=== PATIENT | female | born 1950 | race Caucasian/White ===

== ENCOUNTER → 2017-07-25 13:30 | Outpatient (CLI) | payer MEDICARE, SELFPAY ==
--- NOTE | 2017-08-01 09:30 | PM.PFT.1 ---
Pulmonary Function Test Referral & Results Date Patient Seen: 07/25/17 Requesting provider: Klaudia Anderson Indication: Dyspnea upon exertion Results: The spirometry demonstrates an FVC of 2.89 L which is 101% of predicted. The FEV1 was measured at 2.39 L which is 110% of predicted. The FEV1/FVC ratio was 83 which is 107% of predicted. Lung volumes show an SVC of 3.07 L which is 112% of predicted. The diffusing capacity was measured at 20.77 which is 96% of predicted. The maximum voluntary ventilation was normal. Interpretation: This study demonstrates normal pulmonary function.
== END ==
PROVIDERS: PCP Nurse Practitioner Family; Visit Provider Nurse Practitioner Family
DX: R06.02 Shortness of breath (principal)
CPT/HCPCS: 94010; 94726; 94729

== ENCOUNTER → 2021-03-12 10:54 | Outpatient (CLI) | payer MEDICARE, SELFPAY ==
--- NOTE | 2021-03-12 | DI.MG.S_ITS ---
BILATERAL DIGITAL SCREENING MAMMOGRAM 3D/2D WITH CAD: 03/12/2021 CLINICAL: Routine screening. Family history of breast cancer. Comparison is made to exams dated: 11/12/2018 mammogram - outside location, 01/08/2015 mammogram - [facility], and 11/12/2009 mammogram - [facility]. There are scattered fibroglandular elements in both breasts. Current study was also evaluated with a Computer Aided Detection (CAD) system. No significant masses, calcifications, or other findings are seen in either breast. There has been no significant interval change. IMPRESSION: NEGATIVE There is no mammographic evidence of malignancy. A 1 year screening mammogram is recommended. This exam was interpreted at Station ID: [id number]. NOTE: For mammograms, a report in lay terms will be sent to the patient. Approximately 15% of breast malignancies will not be visualized mammographically. In the management of a palpable breast mass, a negative mammogram must not discourage biopsy of a clinically suspicious lesion. Electronically Signed By: Quincy Goldberg M.D., jr/kirstie:03/12/2021 11:41:46 letter sent: Normal Exam ACR BI-RADS Category 1: Negative 3341F
== END ==
PROVIDERS: PCP Family Medicine; Referring Provider Family Medicine; Visit Provider Family Medicine
DX: Z12.31 Encounter for screening mammogram for malignant neoplasm of breast (principal); Z80.3 Family history of malignant neoplasm of breast
CPT/HCPCS: 77063; 77067

== ENCOUNTER → 2021-08-31 11:19 | Outpatient (CLI) | payer MEDICARE, SELFPAY ==
--- NOTE | 2021-08-31 | DI.RAD.S_ITS ---
PROCEDURE: XR LUMBAR SPINE 2-3V INDICATIONS: Urge incontinence TECHNIQUE: 3 views of the lumbar spine were acquired. COMPARISON: None. FINDINGS: Bones: 5 [id number] vertebrae are present. No significant curvature of the lumbar spine. 2 mm retrolisthesis L5 on S1, 3 mm anterolisthesis L4 on L5, 3-4 mm anterolisthesis L3 on L4, likely degenerative. Moderate multilevel degenerative changes present with disc height loss and endplate spurring most pronounced at L5-S1 and facet degenerative changes most pronounced at the lower lumbar spine. No vertebral body compression fractures. No suspicious bony lesions. Soft tissues: Overlying bowel gas pattern is normal. Vascular calcifications are present. IMPRESSION: 1. No acute lumbar spine fracture visualized radiographically. 2. Moderate multilevel degenerative changes of the lumbar spine. Dictated by: Nav Sparks M.D. on 08/31/2021 at 14:46 Approved by: Nav Sparks M.D. on 08/31/2021 at 14:49
== END ==
PROVIDERS: PCP Family Medicine; Referring Provider Family Medicine; Visit Provider Family Medicine
DX: N39.41 Urge incontinence (principal); M47.816 Spondylosis without myelopathy or radiculopathy, lumbar region; M47.817 Spondylosis without myelopathy or radiculopathy, lumbosacral region
CPT/HCPCS: 72100

== ENCOUNTER → 2021-11-17 13:31 | Outpatient (CLI) | payer MEDICARE, SELFPAY ==
[2021-11-17 20:24] LABS: Add Manual Diff / Slide Review NO; Basophils Absolute Auto 0 /uL (0-100); Basophils Percent Auto 0.5 % (0-2); Eosinophils Absolute Auto 300 /uL (0-450); Hematocrit 35.9 % (36-46); Hemoglobin 12.3 g/dL (12.0-16.0); Lymphocytes Absolute Auto 1300 /uL (1100-4500); Lymphocytes Percent Auto 19.9 % (25-40); Mean Corpuscular HGB Conc 34.1 % (30-36); Mean Corpuscular Volume 90.9 fL (80-100); Monocytes Absolute Auto 600 /uL (0-900); Monocytes Percent Auto 8.8 % (3-14); Neutrophils Absolute Auto 4200 /uL (1500-7000); Neutrophils Percent Auto 65.8 % (50-75); Platelet Count 315 X10^3/uL (150-400); Red Blood Cell Count 3.95 X10^6/uL (4.0-5.2); Red Cell Distribution Width 12.4 % (11.6-14.8); White Blood Cell Count 6.3 X10^3/uL (4.5-11.0)
[2021-11-17 20:35] LABS: Alanine Aminotransferase 15 IU/L (<35); Albumin 4.3 g/dL (3.5-5.0); Albumin Globulin Ratio 1.1 (1.0-2.8); Alkaline Phosphatase 63 U/L (38-126); Aspartate Aminotransferase 26 IU/L (14-36); BUN Creatinine Ratio 22.4 (6-22); Bilirubin Total 0.3 mg/dL (0.2-1.3); Blood Urea Nitrogen 24 mg/dL (7-17); C-Reactive Protein Quant 0.6 mg/dL (<1.0); Calcium 9.4 mg/dL (8.4-10.2); Carbon Dioxide 23 mmol/L (22-32); Chloride 103 mmol/L (98-107); Estimated Glomerular Filt Rate 56 mL/min (>60); Globulin 3.9 g/dL (1.7-4.1); Glucose 95 mg/dL (80-110); HEMOLYSIS < 15 (0-50); Potassium 4.4 mmol/L (3.4-5.1); Sodium 139 mmol/L (137-145); Total Protein 8.2 g/dL (6.3-8.2)
[2021-11-17 20:57] LABS: Erythrocyte Sedimentation Rate 55 MM/HR (0-20)
[2021-11-18 16:09] LABS: Hepatitis B Surface Antigen NEGATIVE s/c (NEGATIVE)
[2021-11-18 16:27] LABS: Hep C Virus Ab w/Reflex Quant NEGATIVE s/c (NEGATIVE)
[2021-11-20 17:30] LABS: QuantiFERON Mitogen Value 9.95 IU/mL (.); QuantiFERON Nil Value 0.05 IU/mL (.); QuantiFERON TB Gold Plus Negative (Negative); QuantiFERON TB1 Ag Value 0.05 IU/mL (.); QuantiFERON TB2 Ag Value 0.05 IU/mL (.)
== END ==
PROVIDERS: Internal Medicine Rheumatology; PCP Family Medicine
DX: L40.50 Arthropathic psoriasis, unspecified (principal); Z79.899 Other long term (current) drug therapy
CPT/HCPCS: 80053; 85025; 85651; 86140; 86480; 86803; 87340

== ENCOUNTER → 2022-03-31 11:16 | Outpatient (CLI) | payer MEDICARE, SELFPAY ==
--- NOTE | 2022-03-31 | DI.MG.S_ITS ---
BILATERAL DIGITAL SCREENING MAMMOGRAM 3D/2D WITH CAD: 03/31/2022 CLINICAL: Routine screening. Family history of breast cancer. Comparison is made to exams dated: 03/12/2021 mammogram - [facility], 11/12/2018 mammogram - outside [facility], and 01/08/2015 mammogram - [facility]. There are scattered areas of fibroglandular density in both breasts (category b / 25%-50% glandular tissue). Current study was also evaluated with a Computer Aided Detection (CAD) system. Thereare benign calcifications in both breasts. There are grouped punctate calcifications in the left breast at 8 o'clock anterior depth. There also is possible architectural distortion in the left breast at 1 o'clock anterior depth. No other significant masses, calcifications, or other findings are seen in either breast. IMPRESSION: INCOMPLETE: NEEDS ADDITIONAL IMAGING EVALUATION The grouped punctate calcifications in the left breast at 8 o'clock anterior depth are indeterminate. Spot magnification views are recommended. The possible architectural distortion in the left breast at 1 o'clock anterior depth is indeterminate. Additional views with possible ultrasound are recommended. Based on the Tyrer Cuzick model (a risk assessment model) the patient's lifetime risk is 7.8% and her 10 year risk is 5.4%. According to the ACR, ACS, and NCCN guidelines, an annual breast MRI exam along with mammogram is recommended if the patient's lifetime risk is 20% or greater. This exam was interpreted at Station ID: [id number]. NOTE: For mammograms, a report in lay terms will be sent to the patient. Approximately 15% of breast malignancies will not be visualized mammographically. In the management of a palpable breast mass, a negative mammogram must not discourage biopsy of a clinically suspicious lesion. Electronically Signed By: Brittany sanchez/:03/31/2022 16:32:53 letter sent: Additional Imaging Needed ACR BI-RADS Category 0: Incomplete 3340F
--- NOTE | 2022-03-31 | DI.MRI.S_ITS ---
PROCEDURE: MR LUMBAR SPINE WO CON INDICATIONS: BACK PAIN TECHNIQUE: Noncontrast sagittal T1 spin echo and T2 fast echo, sagittal STIR, and T2 fast spin echo through the lumbar spine. In cases with scoliosis, additional coronal T2 fast spin echo may be performed. COMPARISON: [facility], CR, XR LUMBAR SPINE 2-3V, 08/31/2021, 11:35. FINDINGS: Image quality: Excellent. Alignment and Curvature: There is minimal anterolisthesis seen at the L3-L4 level. Minimal retrolisthesis is seen at L5-S1. Bone Marrow: Marrow is of normal overall signal. No acute vertebral body compression fractures. Spinal Cord: Conus medullaris terminates at the L1 level. Visualized cord demonstrates normal signal and size. Paraspinous Soft Tissues: No paravertebral masses. Moderate lower thoracic degenerative changes can be seen. T12-L1: At least moderate loss of disc height and disc signal can be seen. Reactive marrow endplate changes are seen, which demonstrate mixed T1 weighted and T2-weighted signal, and are attributed to a combination of edema and fatty metaplasia (Modic type I and Modic type II changes). Moderate generalized disc bulge is seen. There is a superimposed central disc protrusion. There is at least moderate left-sided and moderate right-sided neural foraminal narrowing. Moderate central canal narrowing is seen. L1-L2: The disc height is well-preserved. Loss of disc signal is seen at this level. Mild generalized disc bulge is seen. Mild facet joint hypertrophy is seen. There is mild left-sided and [id number]-fw-[id number] right-sided neural foraminal narrowing. Mild central canal narrowing is seen. L2-L3: The disc height is well-preserved. Loss of disc signal is seen at this level. At least moderate disc bulge is seen, which is eccentric to the right side. At least moderate facet hypertrophy is seen at this level. There is moderate to severe bilateral neural foraminal narrowing seen, with an associated a degree of compression seen upon the exiting nerve roots. At least moderate central canal narrowing is seen at this level, as on series 5, image 17. L3-L4: Moderate loss of disc height is seen. Loss of disc signal is seen. At least moderate disc bulge is seen, with a mild central disc extrusion. Prominent facet hypertrophy is seen. Associated hypertrophy of the ligamentum flavum can be seen. There is moderate to severe bilateral neural foraminal narrowing seen, with an associated a degree of compression seen upon the exiting nerve roots. There is severe central canal narrowing seen at this level, as on series 6, image 5. L4-L5: Kxkx-vj-mdkfudht loss of disc height and disc signal can be seen at this level. Moderate disc bulge is seen, with a central disc extrusion, with superior migration of the disc material, as seen on series 2, image 9 and on series 6, image 8. Prominent facet hypertrophy is seen at this level. There is severe right-sided and mild to severe left-sided neural foraminal narrowing. There is a degree of compression seen upon the exiting nerve roots. Moderate to severe central canal narrowing is seen at this level. L5-S1: Moderate to severe loss of disc height and disc signal can be seen. Reactive marrow endplate changes are seen, which are hyperintense on T1-weighted and T2-weighted imaging and most consistent with fatty metaplasia (Modic type II changes). At least moderate disc bulge is seen, with a central disc protrusion. Moderate facet hypertrophy is seen, left worse than right. There is at least moderate bilateral neural foraminal narrowing seen. There is a mild degree of compression seen upon the exiting L5 nerve roots. No significant central canal narrowing is seen. IMPRESSION: Multiple levels of lumbar spine degenerative change are seen, which are worst at L3-L4 and L4-L5. Dictated by: Austen Kirby M.D. on 03/31/2022 at 15:38 Approved by: Austen Kirby M.D. on 03/31/2022 at 15:42
== END ==
PROVIDERS: PCP Family Medicine; Referring Provider Family Medicine; Visit Provider Family Medicine
DX: Z12.31 Encounter for screening mammogram for malignant neoplasm of breast (principal); Z80.3 Family history of malignant neoplasm of breast; M47.816 Spondylosis without myelopathy or radiculopathy, lumbar region; M54.41 Lumbago with sciatica, right side; M54.42 Lumbago with sciatica, left side
CPT/HCPCS: 72148; 77063; 77067

== ENCOUNTER → 2022-04-25 13:30 | Outpatient (CLI) | payer MEDICARE, SELFPAY ==
--- NOTE | 2022-04-25 | DI.MG.S_ITS ---
UNILATERAL LEFT DIGITAL DIAGNOSTIC MAMMOGRAM 3D/2D WITH ADDITIONAL VIEWS: 04/25/2022 CLINICAL: Additional evaluation requested from prior study. Comparison is made to exams dated: 03/31/2022 mammogram, 03/12/2021 mammogram - [facility], and 11/12/2018 mammogram - outside location. There are scattered areas of fibroglandular density in the left breast (category b / 25%-50% glandular tissue). There are 0.5 cm grouped punctate calcifications in the left breast at 11 o'clock anterior depth. These are seen in additional views. The possible architectural distortion in the left breast at 1 o'clock anterior depth is no longer seen and most likely is fibroglandular tissue. This is not confirmed in additional views. No other significant masses or calcifications are seen in the breast. IMPRESSION: INCOMPLETE: NEEDS ADDITIONAL IMAGING EVALUATION The 0.5 cm grouped punctate calcifications in the left breast at 11 o'clock anterior depth resemble a degenerating fibroadenoma and are indeterminate. An ultrasound is recommended for further evaluation and is scheduled to immediately follow this examination. An ultrasound is also recommended to confirm the no longer seen possible architectural distortion in the left breast at 1 o'clock anterior depth. Based on the Tyrer Cuzick model (a risk assessment model) the patient's lifetime risk is 7.8% and her 10 year risk is 5.4%. According to the ACR, ACS, and NCCN guidelines, an annual breast MRI exam along with mammogram is recommended if the patient's lifetime risk is 20% or greater. This exam was interpreted at Station ID: [id number]. NOTE: For mammograms, a report in lay terms will be sent to the patient. Approximately 15% of breast malignancies will not be visualized mammographically. In the management of a palpable breast mass, a negative mammogram must not discourage biopsy of a clinically suspicious lesion. Electronically Signed By: Krish Love M.D. aty/:04/25/2022 14:45:26 ACR BI-RADS Category 0: Incomplete 3340F
--- NOTE | 2022-04-25 | DI.US.S_ITS ---
ULTRASOUND OF LEFT BREAST: 04/25/2022 CLINICAL: ADD VIEWS OF LEFT BREAST. Comparison is made to exams dated: 04/25/2022 mammogram, 03/31/2022 mammogram, and 03/12/2021 mammogram - [facility]. Color flow and real-time ultrasound of the left breast were performed. Boyce scale images of the real-time examination were reviewed. There is a benign calcification in the left breast. There is a 0.3 cm x 0.3 cm x 0.3 cm oval cyst in the left breast at 11 o'clock anterior depth 3 cm from the nipple. This oval cyst is hypoechoic with internal echoes. This correlates with mammography findings. There are related rim calcifications. Color flow imaging demonstrates that there is no vascularity present. There also is a benign 0.4 cm x 0.3 cm x 0.4 cm oval cyst in the left breast at 10 o'clock posterior depth 6 cm from the nipple. This oval cyst is anechoic with posterior acoustic enhancement. This correlates as an incidental finding. Color flow imaging demonstrates that there is no vascularity present. IMPRESSION: PROBABLY BENIGN The 0.3 cm x 0.3 cm x 0.3 cm oval cyst in the left breast at 11 o'clock anterior depth is consistent with a complicated cyst and is probably benign. A follow-up left mammogram and an ultrasound in 6 months is recommended to demonstrate stability. The 0.4 cm x 0.3 cm x 0.4 cm oval cyst in the left breast at 10 o'clock posterior depth resembles a simple cyst and is benign. There is no abnormality seen in the left breast to correspond with the resolved possible architectural distortion seen on mammography at 1 o'clock which likely represent normal fibroglandular tissue. Findings and recommendations were conveyed to the patient during today's evaluation. This exam was interpreted at Station ID: [id number]. Electronically Signed By: Krish Love M.D. aty/:04/25/2022 15:04:04 letter sent: Followup Recommended Ultrasound BI-RADS: 3 Probably benign
== END ==
PROVIDERS: PCP Family Medicine; Referring Provider Family Medicine; Visit Provider Family Medicine
DX: R92.8 Other abnormal and inconclusive findings on diagnostic imaging of breast (principal); R92.1 Mammographic calcification found on diagnostic imaging of breast; N60.02 Solitary cyst of left breast
CPT/HCPCS: 76642; 77065; G0279

== ENCOUNTER 2022-08-12 13:52 | Inpatient (IN) | payer MEDICARE, SELFPAY ==
[2022-08-12] VITALS (19 sets, daily range): BP systolic 111–141; BP diastolic 59–84; PULSE 86–110; RESP 20–39; TEMP 36.4–36.9; O2SAT 75–98; BMI 26.6
--- NOTE | 2022-08-12 14:16 | DI.RAD.S_ITS ---
PROCEDURE: XR CHEST 1V INDICATIONS: Shortness of breath TECHNIQUE: One view of the chest was acquired. COMPARISON: [facility] ([facility]), CR, XR CHEST 2V, 08/09/2022, 14:32. FINDINGS: Surgical changes and devices: None. Lungs and pleura: Multiple patchy bilateral areas of pulmonary opacity relatively unchanged compared to prior exam. Mediastinum: Mediastinal contours appear normal. Heart size is normal. Bones and chest wall: No suspicious bony lesions. Overlying soft tissues appear unremarkable. IMPRESSION: Persistent bilateral pulmonary opacities suspicious for pneumonia. No appreciable change. Dictated by: Ashwini Saldana M.D. on 08/12/2022 at 14:37 Approved by: Ashwini Saldana M.D. on 08/12/2022 at 14:37
[2022-08-12 14:29] LABS: Add Manual Diff / Slide Review NO; Basophils Absolute Auto 100 /uL (0-100); Basophils Percent Auto 0.9 % (0-2); Eosinophils Absolute Auto 200 /uL (0-450); Eosinophils Percent Auto 2.2 % (2-4); Hematocrit 40.4 % (36-46); Hemoglobin 13.6 g/dL (12.0-16.0); Lymphocytes Absolute Auto 1100 /uL (1100-4500); Mean Corpuscular HGB Conc 33.8 % (30-36); Mean Corpuscular Hemoglobin 31.5 PG (26-34); Mean Corpuscular Volume 93.1 fL (80-100); Monocytes Absolute Auto 500 /uL (0-900); Monocytes Percent Auto 5.2 % (3-14); Neutrophils Absolute Auto 7400 /uL (1500-7000); Neutrophils Percent Auto 79.7 % (50-75); Platelet Count 441 X10^3/uL (150-400); Red Blood Cell Count 4.34 X10^6/uL (4.0-5.2); Red Cell Distribution Width 12.9 % (11.6-14.8); White Blood Cell Count 9.2 X10^3/uL (4.5-11.0)
[2022-08-12 14:35] LABS: INR 1.1 (0.9-1.3); Prothrombin Time 13.1 SECONDS (10.1-12.7)
[2022-08-12 14:42] LABS: Alanine Aminotransferase 20 IU/L (<35); Albumin 4.3 g/dL (3.5-5.0); Alkaline Phosphatase 82 U/L (38-126); Aspartate Aminotransferase 48 IU/L (14-36); BUN Creatinine Ratio 21.3 (6-22); Bilirubin Total 0.6 mg/dL (0.2-1.3); Blood Urea Nitrogen 26 mg/dL (7-17); Calcium 9.8 mg/dL (8.4-10.2); Carbon Dioxide 18 mmol/L (22-32); Chloride 108 mmol/L (98-107); Estimated Glomerular Filt Rate 47 mL/min (>60); Globulin 4.5 g/dL (1.7-4.1); Glucose 141 mg/dL (80-110); HEMOLYSIS 22 (0-50); Potassium 4.4 mmol/L (3.4-5.1); Sodium 142 mmol/L (137-145); Total Protein 8.8 g/dL (6.3-8.2)
[2022-08-12 14:54] LABS: NT-proBNP (BNP-Adult 18+) 3650 pg/mL (<125); Troponin I 0.089 ng/mL (0.01-0.034)
[2022-08-12 14:59] LABS: Procalcitonin 0.07 ng/mL (<0.5)
--- NOTE | 2022-08-12 15:02 | DI.CT.S_ITS ---
PROCEDURE: CT ANGIO CHEST PE PROTOCOL INDICATIONS: sob, +pna, chf changes. TECHNIQUE: After the administration of intravenous contrast, 2 mm thick sections acquired from the pulmonary apices to the posterior costophrenic angles. 3-dimensional maximum intensity projection (MIP) coronal and sagittal reformats were then acquired through the thorax. For radiation dose reduction, the following was used: automated exposure control, adjustment of mA and/or kV according to patient size. COMPARISON: [facility] [place], CR, XR CHEST 2V, 08/09/2022, 14:32. [facility], CR, XR CHEST 1V, 08/12/2022, 14:18. FINDINGS: Image quality: Excellent. Pulmonary arteries: Pulmonary arteries are normal in size, and demonstrate no intraluminal filling defects to suggest central pulmonary embolism. Lungs and pleura: Lungs are clear. No pleural effusions or pneumothorax. Central and peripheral airways are patent. Mediastinum: Heart size is normal, without pericardial effusion. Mild mediastinal or hilar adenopathy, likely reactive. Thoracic aorta is normal in caliber and enhancement. Esophagus is normal in caliber, without hiatal hernia. Bones and chest wall: No suspicious bony lesions. Ribs and thoracic spine appear intact throughout. Thyroid gland is normal. No axillary or supraclavicular adenopathy. Abdomen: Visualized upper abdominal solid organs appear normal in the early arterial phase of enhancement. IMPRESSION: 1. No evidence for pulmonary embolism. 2. Bilateral nodular airspace infiltrates consistent with pneumonia. Recommend clinical correlation for possible atypical pneumonia. Recommend follow-up to resolution. 3. Small pleural effusions bilaterally. 4. Suspect reactive mediastinal and hilar lymphadenopathy. Dictated by: Mark Ordonez M.D. on 08/12/2022 at 16:00 Approved by: Mark Ordonez M.D. on 08/12/2022 at 16:03
[2022-08-12] MEDS: cefTRIAXone 2,000 MG in SODIUM CHLORIDE 0.9% 100 ML 200 MG IV (15:07)
[2022-08-12] MEDS: FUROSEMIDE 60 MG in SODIUM CHLORIDE 0.9% 50 ML 112 MG IV (15:07)
--- NOTE | 2022-08-12 15:08 | ED.SOB ---
HPI - SOB/Dyspnea General Chief Complaint: Shortness of Breath/Dyspnea Stated Complaint: SOB, says Pneumonia, 1 wk Time Seen by Provider: 08/12/22 14:13 Source: patient and RN notes reviewed Mode of arrival: Family Vehicle Limitations: no limitations History of Present Illness HPI Narrative: This is a 72-year-old female with history of hypertension dyslipidemia, prediabetes, psoriatic arthritis on Cosentyx, hypothyroidism who presents with complaint of pneumonia and worsening shortness of breath. Patient states she had symptoms starting about a week and a half ago with shortness of breath and a cough that was persistent but nonproductive. No fevers or chills. Some mild nasal congestion. She denies any chest pain at any point. She is had an no swelling of her extremities, she denies nausea or vomiting, no diarrhea constipation. No dysuria urgency or frequency. Patient states no hemoptysis. She states she was seen by her physician started on a Z-Abram after chest x-ray showed pneumonia. Patient states increasing shortness of breath and now dyspnea with exertion particularly even 4 or 5 steps. Patient lives on [facility]. She was seen by Dr. Perlita Pacheco. Patient states prior hysterectomy, tubal ligation and . No history of known cardiac issues. Allergic to sulfa and lidocaine. No tobacco, 1 alcoholic drink weekly, no illicit. She is accompanied by her . Related Data Previous Rx's Medication Instructions Recorded levothyroxine 50 mcg tablet 0.05 mg PO QAM #90 tabs 02/05/16 metformin 1,000 mg tablet 1,000 mg PO BIDCC #180 tabs 02/05/16 quinapril 40 mg tablet 40 mg PO QDAY #90 tabs 02/05/16 simvastatin 40 mg tablet 40 mg PO HS #90 tabs 02/05/16 albuterol sulfate 90 mcg/actuation 0 IH SEE INSTRUCTIONS ##1 09/13/16 aerosol inhaler (Proventil HFA) albuterol sulfate 90 mcg/actuation 0 IH SEE INSTRUCTIONS ##1 09/21/16 aerosol inhaler (Proventil HFA) Allergies Allergy/AdvReac Type Severity Reaction Status Date / Time Sulfa (Sulfonamide Allergy Intermediate HIVES Unverified 05/31/17 12:19 Antibiotics) lidocaine [LIDOCAINE] Allergy Mild Unverified 05/31/17 12:19 Review of Systems Review of Systems ROS Unobtainable: All systems reviewed & are unremarkable except as noted in HPI and below Exam Narrative Exam Narrative: GENERAL: Alert and oriented x three, female in moderate distress. HEENT: Head normocephalic, atraumatic, EOMI, pupils reactive, face symmetric, moist mucous membranes NECK: Supple, full range of motion CARDIOVASCULAR: Regular rate and rhythm without murmurs, rubs or gallops. No JVD appreciated. No swelling bilateral lower extremities RESPIRATORY: Breath sounds equal bilaterally, no wheezes or rhonchi. Positive for crackles bilateral bases. Positive for tachypnea, no accessory muscle use. Patient was 79% initially on room air comes up to 90% with 4 L. ABDOMEN: Soft, nontender. Normoactive bowel sounds all 4 quadrants. No guarding or rebound, rigidity, no mass : No CVA tenderness EXTREMITIES: Normal range of motion, no clubbing or edema appreciated. Neurovascularly intact NEUROLOGICAL: Cranial nerves II through XII grossly intact. Moving all extremities SKIN: Warm, dry, no petechiae, no rashes or lesions. Initial Vital Signs Initial Vital Signs: Vital Signs Pulse Rate 110 H 08/12/22 14:03 Respiratory Rate 38 H 08/12/22 14:03 Course Orders Ordered: ED Orders 08/12/22 14:16 XR chest 1V Stat EKG-12 Lead Stat Measure peak expiratory flow ONCE RT Consult Eval and Treat NOW 08/12/22 14:20 Complete Blood Count AUTO DIFF Stat Comprehensive Metabolic Panel Stat Lactate (Lactic Acid) Stat NT-proBNP (BNP-Adult 18+) Stat Procalcitonin Stat Prothrombin Time INR Stat Troponin I Stat 08/12/22 14:45 Blood Culture Stat 08/12/22 15:02 CT angio chest PE protocol Stat 08/12/22 15:54 Urine Microscopic Stat 08/12/22 16:27 Magnesium Urgent Troponin & CK Cardiac Panel Stat 08/12/22 18:03 EC echo doppler complete Urgent 08/13/22 05:00 BMP [Basic Metabolic Panel] DAILY CBC Auto Diff [Complete Blood Count AUTO DIFF] DAILY Troponin I Routine 08/14/22 05:00 BMP [Basic Metabolic Panel] DAILY CBC Auto Diff [Complete Blood Count AUTO DIFF] DAILY 08/15/22 05:00 BMP [Basic Metabolic Panel] DAILY CBC Auto Diff [Complete Blood Count AUTO DIFF] DAILY Acetaminophen (Acetaminophen 325 Mg Tablet) 650 mg PO Q6H PRN PRN Reason: Fever/Mild Pain (1-3) Azithromycin (Azithromycin 250 Mg Tablet) 500 mg PO DAILY [facility] Stop: 08/15/22 18:04 Dextrose (Dextrose 50 % In Water 25 Gm/50 Ml Syringe) 25 gm IV PRN PRN PRN Reason: Hypoglycemia Heparin Sodium (Porcine) (Heparin 5,000 Unit/Ml Vial) 5,000 unit SUBCUT BID PILY Ceftriaxone Sodium 1,000 mg/ (Sodium Chloride) 100 mls @ 200 mls/hr IV Q24H PILY Stop: 08/15/22 18:16 Insulin Human Lispro (Insulin Lispro 100 Unit/Ml 3ml Vial) 0 unit SUBCUT ACHS PILY; Protocol Melatonin (Melatonin 3 Mg Tablet) 6 mg PO BEDTIME PRN PRN Reason: Insomnia Naloxone HCl (Naloxone 0.4 Mg/Ml Vial) 0.2 mg IV Q2MIN PRN PRN Reason: Opiate Reversal Polyethylene Glycol (Polyethylene Glycol 3350 17 Gm Powd.Pack) 17 gm PO DAILY PRN PRN Reason: Constipation Sennosides (Sennosides 8.6 Mg Tablet) 8.6 mg PO BID PRN PRN Reason: Constipation Discontinued Medications Furosemide 60 mg/ Sodium (Chloride) 56 mls @ 112 mls/hr IV NOW ONE Stop: 08/12/22 15:01 Last Infusion: 08/12/22 15:40 Dose: 0 mls/hr Documented By: Admin: 08/12/22 15:07 Dose: 112 mls/hr Documented By: VAN Ceftriaxone Sodium 2,000 mg/ (Sodium Chloride) 100 mls @ 200 mls/hr IV NOW ONE Stop: 08/12/22 15:01 Last Infusion: 08/12/22 15:40 Dose: 0 mls/hr Documented By: Admin: 08/12/22 15:07 Dose: 200 mls/hr Documented By: VAN Vital Signs Vital signs: Vital Signs - 8 hr 08/12/22 14:10 08/12/22 14:03 08/12/22 14:04 Temperature 97.6 F Pulse Rate 92 H 110 H 107 H Respiratory Rate 28 H 38 H 39 H Blood Pressure 132/62 Pulse Oximetry 79 L 75 L Oxygen Delivery Method Room Air Oxygen Flow Rate 08/12/22 14:04 08/12/22 14:30 08/12/22 14:30 Temperature Pulse Rate 94 H Respiratory Rate 26 H Blood Pressure 132/62 130/63 Pulse Oximetry 98 94 Oxygen Delivery Method Nasal Cannula Oxygen Flow Rate 4 08/12/22 15:00 08/12/22 15:22 08/12/22 15:22 Temperature Pulse Rate 86 88 Respiratory Rate 26 H 25 H Blood Pressure 141/63 H Pulse Oximetry 93 97 Oxygen Delivery Method Nasal Cannula Oxygen Flow Rate 4 08/12/22 15:30 08/12/22 15:30 08/12/22 16:00 Temperature Pulse Rate 90 Respiratory Rate 20 Blood Pressure 130/61 123/64 Pulse Oximetry 96 Oxygen Delivery Method Oxygen Flow Rate 08/12/22 16:00 08/12/22 16:30 08/12/22 16:31 Temperature Pulse Rate 87 93 H 93 H Respiratory Rate 25 H 26 H 26 H Blood Pressure Pulse Oximetry 97 95 94 Oxygen Delivery Method Nasal Cannula Oxygen Flow Rate 4 08/12/22 17:00 Temperature Pulse Rate Respiratory Rate Blood Pressure 139/65 Pulse Oximetry Oxygen Delivery Method Oxygen Flow Rate MDM - SOB/Dyspnea Lab Data 08/12/22 14:20 08/12/22 14:20 Labs: Lab Results 08/12/22 08/12/22 08/12/22 Range/Units 14:20 14:20 14:20 WBC 9.2 (4.5-11.0) X10^3/uL RBC 4.34 (4.0-5.2) X10^6/uL Hgb 13.6 (12.0-16.0) g/dL Hct 40.4 (36-46) % MCV 93.1 (80-100) fL MCH 31.5 (26-34) PG MCHC 33.8 (30-36) % RDW 12.9 (11.6-14.8) % Plt Count 441 H (150-400) X10^3/uL Neut % (Auto) 79.7 H (50-75) % Lymph % (Auto) 12.0 L (25-40) % [place] % (Auto) 5.2 (3-14) % Eos % (Auto) 2.2 (2-4) % Baso % (Auto) 0.9 (0-2) % Neut # (Auto) 7400 H (1875-3758) /uL Lymph # (Auto) 1100 (4819-6482) /uL [place] # (Auto) 500 (0-900) /uL Eos # (Auto) 200 (0-450) /uL Baso # (Auto) 100 (0-100) /uL PT 13.1 H (10.1-12.7) SECONDS INR 1.1 (0.9-1.3) Sodium 142 (137-145) mmol/L Potassium 4.4 (3.4-5.1) mmol/L Chloride 108 H (98-107) mmol/L Carbon Dioxide 18 L (22-32) mmol/L BUN 26 H (7-17) mg/dL Creatinine 1.22 H (0.52-1.04) mg/dL Estimated GFR 47 L (>60) mL/min BUN/Creatinine Ratio 21.3 (6-22) Glucose 141 H (80-110) mg/dL Lactate (0.7-2.1) mmol/L Calcium 9.8 (8.4-10.2) mg/dL Magnesium (1.6-2.3) mg/dL Total Bilirubin 0.6 (0.2-1.3) mg/dL AST 48 H (14-36) IU/L ALT 20 (<35) IU/L Alkaline Phosphatase 82 (38-126) U/L Total Creatine Kinase (30-135) U/L CK-MB (CK-2) CK-MB (CK-2) Rel Index Troponin I 0.089 H (0.01-0.034) ng/mL NT-Pro-B Natriuret Pep 3650 H (<125) pg/mL Total Protein 8.8 H (6.3-8.2) g/dL Albumin 4.3 (3.5-5.0) g/dL Globulin 4.5 H (1.7-4.1) g/dL Albumin/Globulin Ratio 1.0 (1.0-2.8) Procalcitonin (<0.5) ng/mL Urine RBC (0-5/HPF) Urine WBC (0-5/HPF) Ur Squamous Epith Cells (0-5/HPF) Ur Transition Epith Cell (0-5/HPF) Urine Bacteria (None) Ur Culture Indicated? 08/12/22 08/12/22 08/12/22 Range/Units 14:20 14:20 15:54 WBC (4.5-11.0) X10^3/uL RBC (4.0-5.2) X10^6/uL Hgb (12.0-16.0) g/dL Hct (36-46) % MCV (80-100) fL MCH (26-34) PG MCHC (30-36) % RDW (11.6-14.8) % Plt Count (150-400) X10^3/uL Neut % (Auto) (50-75) % Lymph % (Auto) (25-40) % [place] % (Auto) (3-14) % Eos % (Auto) (2-4) % Baso % (Auto) (0-2) % Neut # (Auto) (0887-6575) /uL Lymph # (Auto) (4714-1771) /uL [place] # (Auto) (0-900) /uL Eos # (Auto) (0-450) /uL Baso # (Auto) (0-100) /uL PT (10.1-12.7) SECONDS INR (0.9-1.3) Sodium (137-145) mmol/L Potassium (3.4-5.1) mmol/L Chloride (98-107) mmol/L Carbon Dioxide (22-32) mmol/L BUN (7-17) mg/dL Creatinine (0.52-1.04) mg/dL Estimated GFR (>60) mL/min BUN/Creatinine Ratio (6-22) Glucose (80-110) mg/dL Lactate 4.0 H (0.7-2.1) mmol/L Calcium (8.4-10.2) mg/dL Magnesium (1.6-2.3) mg/dL Total Bilirubin (0.2-1.3) mg/dL AST (14-36) IU/L ALT (<35) IU/L Alkaline Phosphatase (38-126) U/L Total Creatine Kinase (30-135) U/L CK-MB (CK-2) CK-MB (CK-2) Rel Index Troponin I (0.01-0.034) ng/mL NT-Pro-B Natriuret Pep (<125) pg/mL Total Protein (6.3-8.2) g/dL Albumin (3.5-5.0) g/dL Globulin (1.7-4.1) g/dL Albumin/Globulin Ratio (1.0-2.8) Procalcitonin 0.07 (<0.5) ng/mL Urine RBC 0-1/hpf (0-5/HPF) Urine WBC 1-5/hpf (0-5/HPF) Ur Squamous Epith Cells 1-5 /hpf (0-5/HPF) Ur Transition Epith Cell 0-1/hpf (0-5/HPF) Urine Bacteria None seen (None) Ur Culture Indicated? Cult not indicated 08/12/22 08/12/22 08/12/22 Range/Units 16:27 16:27 16:27 WBC (4.5-11.0) X10^3/uL RBC (4.0-5.2) X10^6/uL Hgb (12.0-16.0) g/dL Hct (36-46) % MCV (80-100) fL MCH (26-34) PG MCHC (30-36) % RDW (11.6-14.8) % Plt Count (150-400) X10^3/uL Neut % (Auto) (50-75) % Lymph % (Auto) (25-40) % [place] % (Auto) (3-14) % Eos % (Auto) (2-4) % Baso % (Auto) (0-2) % Neut # (Auto) (2747-3797) /uL Lymph # (Auto) (5723-8947) /uL [place] # (Auto) (0-900) /uL Eos # (Auto) (0-450) /uL Baso # (Auto) (0-100) /uL PT (10.1-12.7) SECONDS INR (0.9-1.3) Sodium (137-145) mmol/L Potassium (3.4-5.1) mmol/L Chloride (98-107) mmol/L Carbon Dioxide (22-32) mmol/L BUN (7-17) mg/dL Creatinine (0.52-1.04) mg/dL Estimated GFR (>60) mL/min BUN/Creatinine Ratio (6-22) Glucose (80-110) mg/dL Lactate 3.0 H (0.7-2.1) mmol/L Calcium (8.4-10.2) mg/dL Magnesium 1.2 L (1.6-2.3) mg/dL Total Bilirubin (0.2-1.3) mg/dL AST (14-36) IU/L ALT (<35) IU/L Alkaline Phosphatase (38-126) U/L Total Creatine Kinase 45 (30-135) U/L CK-MB (CK-2) TNP CK-MB (CK-2) Rel Index TNP Troponin I 0.092 H (0.01-0.034) ng/mL NT-Pro-B Natriuret Pep (<125) pg/mL Total Protein (6.3-8.2) g/dL Albumin (3.5-5.0) g/dL Globulin (1.7-4.1) g/dL Albumin/Globulin Ratio (1.0-2.8) Procalcitonin (<0.5) ng/mL Urine RBC (0-5/HPF) Urine WBC (0-5/HPF) Ur Squamous Epith Cells (0-5/HPF) Ur Transition Epith Cell (0-5/HPF) Urine Bacteria (None) Ur Culture Indicated? Urine Dip Bedside Urine Glucose Negative Bedside Urine Bilirubin - Negative Bedside Urine Ketone - Negative Urine Specific [place] 1.010 Bedside Urine Occult Blood - Negative Bedside Urine pH 6.0 Bedside Urine Protein - Negative Bedside Urine Urobilinogen - Negative Bedside Urine Nitrite - Negative Bedside Urine Leukocytes +/- 15 Esterase Imaging Data Chest x-ray: Radiologist's Impression: Close Chest X-Ray (Signed) Ashwini Saldana - 08/12/22 Chest X-Ray (Signed) Mark Ordonez - 08/09/22 Mammogram, Additional Views (Signed) Krish Love - 04/25/22 Breast Ultrasound (Signed) Krish Love - 04/25/22 Mammogram Screening (Signed) Brittany Snider - 03/31/22 Lumbar Spine MRI (Signed) Austen Kirby - 03/31/22 Lumbar Spine X-Ray (Signed) Nav Sparks - 08/31/21 Mammogram Screening (Signed) Quincy Goldberg - 03/12/21 Pulmonary Function Test 07/25/17 Launch?[address] [address] XRay Report Signed Patient: Ya Slater MR#: [id number] : 1950 Acct:[id number] Age/Sex: 72 / F Date of Service: 08/12/22 Loc: ED Accession Number: [id number] ?? Procedure: XR chest 1V Ordering Provider: Annika Villatoro D.O. PROCEDURE:? XR CHEST 1V ? INDICATIONS:? Shortness of breath ? TECHNIQUE:? One view of the chest was acquired.? ? COMPARISON:? [facility] ([place]), CR, XR CHEST 2V, 08/09/2022, 14:32. ? FINDINGS:? ? Surgical changes and devices:? None.? ? Lungs and pleura:? Multiple patchy bilateral areas of pulmonary opacity relatively unchanged compared to prior exam. ? Mediastinum:? Mediastinal contours appear normal.? Heart size is normal.? ? Bones and chest wall:? No suspicious bony lesions.? Overlying soft tissues appear unremarkable.? ? IMPRESSION:? Persistent bilateral pulmonary opacities suspicious for pneumonia.? No appreciable change. ? ? Dictated by: Ashwini Saldana M.D. on 08/12/2022 at 14:37 ? ? Approved by: Ashwini Saldana M.D. on 08/12/2022 at 14:37?? ECG Data Attestation: I personally reviewed and interpreted this ECG as follows: Interpretation: Sinus rhythm rate of 95 MS 172 QRS is 72 and QTC of 452. No acute ST elevation or depression appreciated. No priors for comparison. MDM Narrative Medical decision making narrative: This is a 72-year-old female who presents with complaint of worsening pneumonia. Patient notes about a week and a half of symptoms had a chest x-ray on 08/09/2022 which showed patchy bilateral infiltrates suspicious for atypical pneumonia. Patient has crackles bilateral bases, she is hypoxic, tachypneic does respond well to O2. Does not appear to be in respiratory distress requiring BiPAP or additional intervention but is requiring oxygen. Patient has not had any clear CHF changes but has had shortness of breath with cough and exertional dyspnea. She does not have leukocytosis platelets are elevated. Bandemia. Patient's creatinine is 1.2 has 1.07 in October of 2021 with a CO2 of 18 sodium is 142 potassium is 4.4 lactate was 4 AST is 48 BNP is 36 50 with a troponin of 0.089 in the indeterminate range and negative procalcitonin. Suspect there maybe a component of CHF so fluids were held and patient was not given 30 cc/kilos sepsis bolus, dose of Lasix was given patient was covered with Rocephin she is already had azithromycin today. CT chest for further evaluation for possible pulmonary, versus pneumonia versus CHF as causes of her symptoms. CT shows no pulmonary emboli, does show pneumonia and some pleural effusion. Patient's lactate trending down to 3 without fluids we will continue to hold with continued diuresis and fluids as needed. Patient does desat when moved to the commode and off O2 for 1-2 minutes. Slowly improved. Patient case discussed with the [facility] for admission: Patient accepted for admission. Reviewed CT chest, today's findings. Patient accepted for admission, patient troponin was repeated, slightly increased but platelet continue to monitor. Critical Care Time Critical Care Time Attestation: The high probability of a clinically significant, sudden or life threatening deterioration of the [cardiac, pulm] system(s) required my full and direct attention, intervention and personal management. The aggregate critical care time was [] minutes. This time is in addition to time spent performing reported procedures but includes the following: [x] Data Review and interpretation [x] Patient assessment and monitoring of vital signs [x] Documentation [x] Medication orders and management Discharge Plan Departure Patient Disposition: Admitted As Inpatient Clinical Impression: Pneumonia, Acute exacerbation of CHF (congestive heart failure), Acute respiratory failure with hypoxia Prescriptions: No Action quinapril 40 MG tablet 40 mg PO QDAY Qty: 90 3RF simvastatin 40 MG tablet 40 mg PO HS Qty: 90 3RF levothyroxine 50 MCG tablet 0.05 mg PO QAM Qty: 90 3RF metformin 1,000 MG tablet 1,000 mg PO BIDCC Qty: 180 3RF albuterol sulfate [Proventil HFA] 90 MCG/PUFF HFA aerosol inhaler 0 IH SEE INSTRUCTIONS Qty: 1 0RF albuterol sulfate [Proventil HFA] 90 MCG/PUFF HFA aerosol inhaler 0 IH SEE INSTRUCTIONS Qty: 1 1RF Referrals: Perlita Pacheco MD [Primary Care Provider] -
[2022-08-12 16:24] LABS: Reflexed Lactate in 2 Hours Y
[2022-08-12 16:41] LABS: Bacteria Urine None Seen; Culture Indicated Urine Cult Not Indicated; RBC Urine 0-1/HPF (0-5/HPF); Squamous Epithelial Cell Urine 1-5 /HPF (0-5/HPF); Transitional Epi Cells Urine 0-1/HPF (0-5/HPF); WBC Urine 1-5/HPF (0-5/HPF)
[2022-08-12 16:44] LABS: Creatine Kinase 45 U/L (30-135)
[2022-08-12 16:57] LABS: Troponin I 0.092 ng/mL (0.01-0.034)
--- NOTE | 2022-08-12 18:03 | DI.ECHO.S_ITS ---
[facility]---------+ [facility] +---------+ : : [address] : [place] : : : : [id number] : : : : Phone: [phone] Echocardiogram Report + + :Name: SAMIRA CAR Study Date: 08/14/2022 Height: 66 in : :[facility] ReadingLocation: Weight: 165 lb : : Gender: Female BSA: 1.8 m2 : :: 1950 Age: 72 yrs BP: 101/56 mmHg: :Reason For Study: Elevated BNP : :Ordering Physician: Chaim, : :Dustin Performed By: Gwendolyn Smith : :Referring: DUSTIN MACHUCA A : + + Interpretation Summary Normal sinus rhythm with wide QRS complexes. Normal LV size and mild concentric LVH. Normal wall motion and LV systolic function. Ejection fraction is 60-65%. Stage I diastolic dysfunction. Aortic valve leaflets are mildly thickened and calcified with mildly reduced leaflet excursion but open well. Estimated PA systolic pressure is 29 mm Hg assuming RA pressure of 3 mm Hg. No prior study available for comparison. Procedure: A two-dimensional transthoracic echocardiogram with color flow and Doppler was performed. The study quality was technically adequate. There is no prior echocardiogram noted for this patient. A contrast injection of Definity was performed to improve assessment of LV function. The patient was in normal sinus rhythm during the exam. Left Ventricle: The left ventricular cavity is small. The ejection fraction is estimated to be 60-65%. Diastolic parameters suggest a relaxation abnormality of the left ventricle, consistent with probable normal filling pressures. Right Ventricle: The right ventricular cavity is small. Right ventricular systolic function is mild to moderately reduced. Atria: The left atrial size is normal. Right atrium is small. There is no Doppler evidence for an interatrial shunt. Mitral Valve: The mitral valve is normal. There is no mitral valve stenosis. There is no mitral regurgitation noted. Aortic Valve: The aortic valve is trileaflet. The aortic valve is mildly calcified. There is no aortic valve stenosis. No aortic regurgitation is present. Tricuspid Valve: The tricuspid valve is normal. There is no tricuspid stenosis. There is trace tricuspid regurgitation. Pulmonic Valve: The pulmonic valve leaflets are thin and pliable; valve motion is normal. There is no pulmonic valvular stenosis. There is no pulmonic valvular regurgitation. Great Vessels: The aortic root is normal size. The ascending aorta is normal in size. The pulmonary artery is normal size. The IVC is of normal diameter and collapses greater than 50% with a sniff. This suggests a low right atrial pressure of 3 mm Hg. Pericardium/ Pleura There is no pericardial effusion. MMode/2D Measurements & Calculations LVIDd: 2.5 cm LVOT diam: 1.7 cm LVIDs: 2.0 cm Ao root diam: 2.5 cm FS: 20.0 % asc Aorta Diam: 3.4 cm EPSS: 0.80 cm IVSd: 1.4 cm LVPWd: 1.2 cm LV contreras. diameter/BSA (cm/m^2): 1.4 LV sys. diameter/BSA (cm/m^2): 1.1 LA A2 area: 14.5 cm2 RA long axis: 3.8 cm LA A4 area: 11.5 cm2 RA area: 8.3 cm2 LA length (vol): 5.4 cm RA vol: 15.2 ml LA vol: 26.3 ml RA : 8.3 ml/m2 LA vol index: 14.3 ml/m2 RVD1 (basal): 2.9 cm LVLs ap4: 4.9 cm TAPSE: 1.3 cm LVLd ap2: 5.7 cm TAPSE_phl: 1.4 cm LVLs ap2: 5.4 cm Doppler Measurements & Calculations Ao V2 max: 191.0 cm/sec LVOT Max Jose Luis: 105.0 cm/sec Ao V2 mean: 121.0 cm/sec LV V1 max P.4 mmHg Ao max P.0 mmHg LV V1 VTI: 16.9 cm Ao mean P.0 mmHg DODIE(I,D): 1.3 cm2 Ao V2 VTI: 30.2 cm DODIE(V,D): 1.2 cm2 sev ratio: 0.56 DODIE indexed to BSA (cm^2/m^2): 0.69 MV E max jose luis: 49.9 cm/sec TR max jose luis: 253.0 cm/sec MV A max jose luis: 90.6 cm/sec TR max P.6 mmHg MV E/A: 0.55 PA V2 max: 80.6 cm/sec Med Peak E' Jose Luis: 3.2 cm/sec PA V2 mean: 55.6 cm/sec E/E' med: 15.6 PA mean P.0 mmHg Lat Peak E' Jose Luis: 5.9 cm/sec PA pr(Accel): 47.0 mmHg E/E' lat: 8.5 E/e' average: 12.1 MV dec time: 0.20 sec SV(LVOT): 38.4 ml AV VR_phl: 0.55 DODIE(VTI)/BSA_phl: 0.69 MV P1/2t-pr_phl: 59.0 msec RV S Vel_phl: 10.3 cm/sec Electronically signed by: Katlyn Parker M.D. on Reading Physician:08/14/2022 05:42 PM
[2022-08-12 18:19] LABS: Magnesium 1.2 mg/dL (1.6-2.3)
[2022-08-12] MEDS: cefTRIAXone 1,000 MG in SODIUM CHLORIDE 0.9% 100 ML 200 MG IV (18:33)
[2022-08-12] MEDS: AZITHROMYCIN 250 MG TABLET 500 MG PO (18:33)
--- NOTE | 2022-08-12 18:48 | PM.HP.1 ---
History of Present Illness History of Present Illness Date Patient Seen: 08/12/22 Time Patient Seen: 18:48 Chief complaint: SOB, says Pneumonia, 1 wk, getting worse Narrative: Ya Slater is a 72yo F with PMH of psoriatic arthritis, hypothyroidism, prediabetes, HTN, and HLD who presents with worsening exertional dyspnea. She states for the past 10 days she has had a dry cough and progressive dyspnea. She gets extremely winded with any movement. Was seen in and put on azithro after a CXR showed PNA. She says her cough improved with this but her dyspnea did not so she came to the ED. In the ED found to be hypoxic to 75% and placed on 4L NC and now satting in mid-90's. She is comfortable at rest. Denies CP, fevers, sore throat, abd pain, LE swelling or diarrhea. BNP 3605. LA of 4. CXR showed bilateral opacities concerning for PNA. CTA chest showed bilateral nodular opacities consistent with PNA. She was given a dose of 60 IV lasix. Meds Home Medications and Allergies Home Medications Medication Instructions Recorded Confirmed Type levothyroxine 50 mcg tablet 0.05 mg PO QAM #90 tabs 02/05/16 Rx metformin 1,000 mg tablet 1,000 mg PO BIDCC #180 tabs 02/05/16 Rx quinapril 40 mg tablet 40 mg PO QDAY #90 tabs 02/05/16 Rx simvastatin 40 mg tablet 40 mg PO HS #90 tabs 02/05/16 Rx albuterol sulfate 90 mcg/actuation 0 IH SEE INSTRUCTIONS ##1 09/13/16 Rx aerosol inhaler (Proventil HFA) albuterol sulfate 90 mcg/actuation 0 IH SEE INSTRUCTIONS ##1 09/21/16 Rx aerosol inhaler (Proventil HFA) Allergies Allergy/AdvReac Type Severity Reaction Status Date / Time Sulfa (Sulfonamide Allergy Intermediate HIVES Unverified 05/31/17 12:19 Antibiotics) lidocaine [LIDOCAINE] Allergy Mild Unverified 05/31/17 12:19 Review of Systems Review of Systems Narrative: All other systems reviewed with the patient and are negative unless otherwise stated. Exam Vital Signs (past 8 hours): - 08/12/22 14:10 08/12/22 14:03 08/12/22 14:04 Temperature 97.6 F Pulse Rate 92 H 110 H 107 H Respiratory Rate 28 H 38 H 39 H Blood Pressure 132/62 Pulse Oximetry 79 L 75 L Oxygen Delivery Method Room Air Oxygen Flow Rate 08/12/22 14:04 08/12/22 14:30 08/12/22 14:30 Temperature Pulse Rate 94 H Respiratory Rate 26 H Blood Pressure 132/62 130/63 Pulse Oximetry 98 94 Oxygen Delivery Method Nasal Cannula Oxygen Flow Rate 4 08/12/22 15:00 08/12/22 15:22 08/12/22 15:22 Temperature Pulse Rate 86 88 Respiratory Rate 26 H 25 H Blood Pressure 141/63 H Pulse Oximetry 93 97 Oxygen Delivery Method Nasal Cannula Oxygen Flow Rate 4 08/12/22 15:30 08/12/22 15:30 08/12/22 16:00 Temperature Pulse Rate 90 Respiratory Rate 20 Blood Pressure 130/61 123/64 Pulse Oximetry 96 Oxygen Delivery Method Oxygen Flow Rate 08/12/22 16:00 08/12/22 16:30 08/12/22 16:31 Temperature Pulse Rate 87 93 H 93 H Respiratory Rate 25 H 26 H 26 H Blood Pressure Pulse Oximetry 97 95 94 Oxygen Delivery Method Nasal Cannula Oxygen Flow Rate 4 08/12/22 17:00 08/12/22 17:30 08/12/22 17:30 Temperature Pulse Rate 92 H Respiratory Rate 25 H Blood Pressure 139/65 119/59 L Pulse Oximetry 92 Oxygen Delivery Method Oxygen Flow Rate 08/12/22 18:00 08/12/22 18:00 08/12/22 18:30 Temperature Pulse Rate 92 H 94 H Respiratory Rate 25 H 30 H Blood Pressure 111/79 Pulse Oximetry 94 91 Oxygen Delivery Method Oxygen Flow Rate 08/12/22 18:31 08/12/22 18:31 Temperature Pulse Rate 96 H Respiratory Rate 33 H Blood Pressure 126/77 Pulse Oximetry 91 Oxygen Delivery Method Oxygen Flow Rate Oxygen Delivery Method Nasal Cannula Oxygen Flow Rate 4 Narrative Exam Narrative: GEN: no acute distress, on 4 L nasal cannula HEENT: moist mucous membranes, PERRL NECK: trachea midline, no JVD CV: regular rate and rhythm, no murmurs PULM: Bibasilar rales ABD: soft, nontender, nondistended, no organomegaly EXT: warm and well perfused with no edema NEURO: awake, alert, oriented, no focal deficits Objective Labs 08/12/22 14:20 08/12/22 14:20 Labs: Laboratory Results - last 24 hr 08/12/22 08/12/22 08/12/22 14:20 14:20 14:20 WBC 9.2 RBC 4.34 Hgb 13.6 Hct 40.4 MCV 93.1 MCH 31.5 MCHC 33.8 RDW 12.9 Plt Count 441 H Neut % (Auto) 79.7 H Lymph % (Auto) 12.0 L [place] % (Auto) 5.2 Eos % (Auto) 2.2 Baso % (Auto) 0.9 Neut # (Auto) 7400 H Lymph # (Auto) 1100 [place] # (Auto) 500 Eos # (Auto) 200 Baso # (Auto) 100 PT 13.1 H INR 1.1 Sodium 142 Potassium 4.4 Chloride 108 H Carbon Dioxide 18 L BUN 26 H Creatinine 1.22 H Estimated GFR 47 L BUN/Creatinine Ratio 21.3 Glucose 141 H Lactate Calcium 9.8 Magnesium Total Bilirubin 0.6 AST 48 H ALT 20 Alkaline Phosphatase 82 Total Creatine Kinase CK-MB (CK-2) CK-MB (CK-2) Rel Index Troponin I 0.089 H NT-Pro-B Natriuret Pep 3650 H Total Protein 8.8 H Albumin 4.3 Globulin 4.5 H Albumin/Globulin Ratio 1.0 Procalcitonin Urine RBC Urine WBC Ur Squamous Epith Cells Ur Transition Epith Cell Urine Bacteria Ur Culture Indicated? 08/12/22 08/12/22 08/12/22 14:20 14:20 15:54 WBC RBC Hgb Hct MCV MCH MCHC RDW Plt Count Neut % (Auto) Lymph % (Auto) [place] % (Auto) Eos % (Auto) Baso % (Auto) Neut # (Auto) Lymph # (Auto) [place] # (Auto) Eos # (Auto) Baso # (Auto) PT INR Sodium Potassium Chloride Carbon Dioxide BUN Creatinine Estimated GFR BUN/Creatinine Ratio Glucose Lactate 4.0 H Calcium Magnesium Total Bilirubin AST ALT Alkaline Phosphatase Total Creatine Kinase CK-MB (CK-2) CK-MB (CK-2) Rel Index Troponin I NT-Pro-B Natriuret Pep Total Protein Albumin Globulin Albumin/Globulin Ratio Procalcitonin 0.07 Urine RBC 0-1/hpf Urine WBC 1-5/hpf Ur Squamous Epith Cells 1-5 /hpf Ur Transition Epith Cell 0-1/hpf Urine Bacteria None seen Ur Culture Indicated? Cult not indicated 08/12/22 08/12/22 08/12/22 16:27 16:27 16:27 WBC RBC Hgb Hct MCV MCH MCHC RDW Plt Count Neut % (Auto) Lymph % (Auto) Sam[place] % (Auto) Eos % (Auto) Baso % (Auto) Neut # (Auto) Lymph # (Auto) [place] # (Auto) Eos # (Auto) Baso # (Auto) PT INR Sodium Potassium Chloride Carbon Dioxide BUN Creatinine Estimated GFR BUN/Creatinine Ratio Glucose Lactate 3.0 H Calcium Magnesium 1.2 L Total Bilirubin AST ALT Alkaline Phosphatase Total Creatine Kinase 45 CK-MB (CK-2) TNP CK-MB (CK-2) Rel Index TNP Troponin I 0.092 H NT-Pro-B Natriuret Pep Total Protein Albumin Globulin Albumin/Globulin Ratio Procalcitonin Urine RBC Urine WBC Ur Squamous Epith Cells Ur Transition Epith Cell Urine Bacteria Ur Culture Indicated? Assessment & Plan Assessment & Plan narrative: # community-acquired pneumonia -bilateral opacities suspicious for PNA seen on CXR and CTA chest, no PE -rocephin and azithro ordered -procal neg -dry cough so no sputum to collect # possible CHF exacerbation -BNP elevated, rales on exam and severe exertional dyspnea -lasix 60 IV given in ED -continue lasix 40 IV BID -echo ordered -strict I/O's # hypomagnesemia -mag 1.2 -replete and monitor # lactic acidosis -LA of 4 in ED -improved to 3 with lasix -trend to normal # acute hypoxic resp failure -on 4L NC in ED due to sats in 70's -secondary to first 2 problems -abx and diuresis -wean O2 as able # ANDI vs CKD -Cr 1.22, prior was 1.07 in -monitor with diuresis -avoid nephrotoxic meds # prediabetes -hold metformin -check A1c -low dose SSI # hypothryoidism -check TSH -continue thyroid meds # HTN -hold home GIANNA-i due to ANDI # HLD -continue home statin Code status is full code. DVT prophylaxis with heparin subQ. Proxy is Shad. I have reviewed home meds and used all available resources to reconcile the home meds. This patient will be admitted as inpatient and will require greater than 2 midnights of hospital time to treat hypoxic resp failure, PNA and possible CHF exac.
[2022-08-12 19:37] LABS: TSH w/ Reflex to FT4 2.57 uIU/mL (0.47-4.68)
[2022-08-12] MEDS: MAGNESIUM SULFATE 4 GM/100 ML PIGGYBACK IV (20:36)
[2022-08-12] MEDS: HEPARIN 5,000 UNIT/ML VIAL 5000 UNIT SUBCUT (21:46)
[2022-08-12] MEDS: ATORVASTATIN 20 MG TABLET PO (21:46)
--- NOTE | 2022-08-12 23:33 | PC.NURSE ---
2100; Dr. Mcfarland was made aware that pt refused getting a quinonez catheter placed for strict intake and output monitoring; pt is able to use the bedside commode appropriately and a hat is placed in it to get an accurate measurement of output. Pt also refused Insulin if she met BG parameters for insulin d/t pt stating she was wasn't on Insulin at home and Metformin was prescribed to her for something else other than diabetes. Pt c/o of pain during Magnesium Sulfate IV infusion and verified with Dr Mcfarland if it's okay to infuse 20 mL/hr of NS to Y-site with Magnesium sulfate to reduce pain; okay per Dr. Mcfarland.
[2022-08-13] VITALS (12 sets, daily range): BP systolic 98–125; BP diastolic 52–68; PULSE 84–98; RESP 17–18; TEMP 35.7–37.1; O2SAT 91–94
[2022-08-13] MEDS: LEVOTHYROXINE 50 MCG TABLET PO (06:07)
[2022-08-13 07:27] LABS: Add Manual Diff / Slide Review NO; Basophils Absolute Auto 100 /uL (0-100); Eosinophils Absolute Auto 300 /uL (0-450); Eosinophils Percent Auto 3.8 % (2-4); Hematocrit 34.7 % (36-46); Hemoglobin 11.7 g/dL (12.0-16.0); Lymphocytes Absolute Auto 900 /uL (1100-4500); Lymphocytes Percent Auto 12.4 % (25-40); Mean Corpuscular HGB Conc 33.9 % (30-36); Mean Corpuscular Hemoglobin 31.1 PG (26-34); Mean Corpuscular Volume 91.9 fL (80-100); Monocytes Absolute Auto 500 /uL (0-900); Monocytes Percent Auto 7.2 % (3-14); Neutrophils Absolute Auto 5200 /uL (1500-7000); Neutrophils Percent Auto 75.6 % (50-75); Platelet Count 332 X10^3/uL (150-400); Red Blood Cell Count 3.77 X10^6/uL (4.0-5.2); Red Cell Distribution Width 12.7 % (11.6-14.8); White Blood Cell Count 6.9 X10^3/uL (4.5-11.0)
[2022-08-13 07:38] LABS: BUN Creatinine Ratio 22.5 (6-22); Blood Urea Nitrogen 25 mg/dL (7-17); Calcium 8.8 mg/dL (8.4-10.2); Carbon Dioxide 24 mmol/L (22-32); Chloride 105 mmol/L (98-107); Estimated Glomerular Filt Rate 53 mL/min (>60); Glucose 111 mg/dL (80-110); HEMOLYSIS < 15 (0-50); Potassium 4.6 mmol/L (3.4-5.1); Sodium 137 mmol/L (137-145)
[2022-08-13] MEDS: HEPARIN 5,000 UNIT/ML VIAL 5000 UNIT SUBCUT ×2 (09:10→21:01)
[2022-08-13] MEDS: AZITHROMYCIN 250 MG TABLET 500 MG PO (09:10)
[2022-08-13] MEDS: FUROSEMIDE 40 MG/4 ML VIAL 60 MG IV ×2 (09:12→15:32)
--- NOTE | 2022-08-13 12:03 | CM.DANOTE ---
Initial Discharge Assessment Note: Case reviewed, met with patient and daughter. Introduced self and role. Payer: Medicare and [employer] PCP: Perlita Pacheco 72 year old female admitted with pneumonia, possible CHF exacerbation. Patient lives in [facility] with her spouse Shad. They have a daughter who lives close by. Patient is independent and drives. Plan: When medically cleared, discharge home to 's care. GAURAV Discharge Planning/Care Management CM Discharge Assessment Start: 08/13/22 12:01 Freq: Status: Active Protocol: Document 08/13/22 12:01 (Rec: 08/13/22 12:03 [email or web address]) Discharge Planning Assessment DPOA/Assigned Designee Name Deanna Sandy RN/AILYN Advance Directives? No History Provided By Patient,Family Member,Medical Record Prior Living Arrangements House Household Members spouse Type of transporation used prior to Drives own vehicle admit Independent with ADL's Yes Is patient alert and oriented? Yes Discharge Plan Home Referrals Initiated None needed Review Status In Process Next Review Type Continued Stay Review
--- NOTE | 2022-08-13 17:12 | PM.PN.1 ---
Subjective Subjective Interval history: Weaned to 2L NC. Able to walk around the unit and SOB has improved. Exam Vital Signs (past 8 hours): - 08/13/22 10:05 08/13/22 10:15 08/13/22 13:45 Temperature Pulse Rate Respiratory Rate Blood Pressure Pulse Oximetry 94 94 93 Oxygen Delivery Method Nasal Cannula Nasal Cannula Nasal Cannula Oxygen Flow Rate 3.5 2 08/13/22 14:00 Temperature 96.3 F L Pulse Rate 85 Respiratory Rate 18 Blood Pressure 103/52 L Pulse Oximetry 92 Oxygen Delivery Method Oxygen Flow Rate 2 Oxygen Delivery Method Nasal Cannula Oxygen Flow Rate 2 Narrative Exam Narrative: GEN: no acute distress, on 2L nasal cannula HEENT: moist mucous membranes, PERRL NECK: trachea midline, no JVD CV: regular rate and rhythm, no murmurs PULM: Bibasilar rales have improved ABD: soft, nontender, nondistended, no organomegaly EXT: warm and well perfused with no edema NEURO: awake, alert, oriented, no focal deficits Objective Labs 08/13/22 07:10 08/13/22 07:10 Labs: Laboratory Results - last 24 hr 08/12/22 08/12/22 08/13/22 14:20 16:27 07:10 WBC RBC Hgb Hct MCV MCH MCHC RDW Plt Count Neut % (Auto) Lymph % (Auto) [place] % (Auto) Eos % (Auto) Baso % (Auto) Neut # (Auto) Lymph # (Auto) [place] # (Auto) Eos # (Auto) Baso # (Auto) Sodium Potassium Chloride Carbon Dioxide BUN Creatinine Estimated GFR BUN/Creatinine Ratio Glucose Calcium Magnesium 1.2 L Troponin I 0.040 H TSH 2.57 08/13/22 08/13/22 08/13/22 07:10 07:10 07:10 WBC 6.9 RBC 3.77 L Hgb 11.7 L Hct 34.7 L MCV 91.9 MCH 31.1 MCHC 33.9 RDW 12.7 Plt Count 332 Neut % (Auto) 75.6 H Lymph % (Auto) 12.4 L [place] % (Auto) 7.2 Eos % (Auto) 3.8 Baso % (Auto) 1.0 Neut # (Auto) 5200 Lymph # (Auto) 900 L [place] # (Auto) 500 Eos # (Auto) 300 Baso # (Auto) 100 Sodium 137 Potassium 4.6 Chloride 105 Carbon Dioxide 24 BUN 25 H Creatinine 1.11 H Estimated GFR 53 L BUN/Creatinine Ratio 22.5 H Glucose 111 H Calcium 8.8 Magnesium 2.0 Troponin I TSH PFSH Social History household members: spouse Smoking Status: Never smoker alcohol intake: current Assessment & Plan Assessment & Plan narrative: # community-acquired pneumonia -bilateral opacities suspicious for PNA seen on CXR and CTA chest, no PE -rocephin and azithro ordered -procal neg -dry cough so no sputum to collect # possible CHF exacerbation -BNP elevated, rales on exam and severe exertional dyspnea -lasix 60 IV given in ED -continue lasix 60 IV BID -net neg -3L since admission -echo ordered -strict I/O's # hypomagnesemia, resolved -mag 1.2, now 2 -replete and monitor # lactic acidosis -LA of 4 in ED -improved to 3 with lasix -trend to normal # acute hypoxic resp failure, improving -on 4L NC in ED due to sats in 70's -secondary to first 2 problems -abx and diuresis -wean O2 as able, now at 2L # ANDI vs CKD, improving -Cr 1.22, prior was 1.07 -monitor with diuresis -avoid nephrotoxic meds -Cr downtrending # prediabetes -hold metformin -A1c pending -low dose SSI # hypothryoidism TSH normal -continue thyroid meds # HTN -hold home GIANNA-i due to ANDI # HLD -continue home statin Code status is full code. DVT prophylaxis with heparin subQ. Proxy is Shad. I have discussed with the hospital multidisciplinary care team including social work rounds. Dispo: Home in 1-2 days pending weaning of O2 and echo results. Quality VTE Deep Vein Thrombosis/Pulmonary Embolism Present on Admission: No
[2022-08-13] MEDS: cefTRIAXone 1,000 MG in SODIUM CHLORIDE 0.9% 100 ML 200 MG IV (18:21)
[2022-08-13] MEDS: ATORVASTATIN 20 MG TABLET PO (21:01)
[2022-08-14] VITALS (12 sets, daily range): BP systolic 101–138; BP diastolic 53–71; PULSE 80–91; RESP 17–20; TEMP 35.7–36.4; O2SAT 90–94
[2022-08-14] MEDS: LEVOTHYROXINE 50 MCG TABLET PO (05:49)
[2022-08-14 07:07] LABS: Add Manual Diff / Slide Review NO; Basophils Absolute Auto 0 /uL (0-100); Basophils Percent Auto 0.5 % (0-2); Eosinophils Absolute Auto 400 /uL (0-450); Eosinophils Percent Auto 4.7 % (2-4); Hemoglobin 11.8 g/dL (12.0-16.0); Lymphocytes Absolute Auto 1100 /uL (1100-4500); Lymphocytes Percent Auto 13.6 % (25-40); Mean Corpuscular HGB Conc 33.7 % (30-36); Mean Corpuscular Hemoglobin 31.1 PG (26-34); Mean Corpuscular Volume 92.4 fL (80-100); Monocytes Absolute Auto 700 /uL (0-900); Monocytes Percent Auto 8.1 % (3-14); Neutrophils Absolute Auto 6000 /uL (1500-7000); Neutrophils Percent Auto 73.1 % (50-75); Platelet Count 395 X10^3/uL (150-400); Red Blood Cell Count 3.79 X10^6/uL (4.0-5.2); Red Cell Distribution Width 12.9 % (11.6-14.8); White Blood Cell Count 8.2 X10^3/uL (4.5-11.0)
[2022-08-14 07:16] LABS: Lactate (Lactic Acid) 1.1 mmol/L (0.7-2.1)
[2022-08-14 07:17] LABS: BUN Creatinine Ratio 23.4 (6-22); Blood Urea Nitrogen 32 mg/dL (7-17); Calcium 8.9 mg/dL (8.4-10.2); Carbon Dioxide 25 mmol/L (22-32); Chloride 100 mmol/L (98-107); Estimated Glomerular Filt Rate 41 mL/min (>60); Glucose 120 mg/dL (80-110); HEMOLYSIS < 15 (0-50); Potassium 4.1 mmol/L (3.4-5.1); Sodium 135 mmol/L (137-145)
--- NOTE | 2022-08-14 08:52 | PM.PN.1 ---
Subjective Subjective Interval history: Frustrated with being in the hospital. No new complaints. Still requiring oxygen for breathing. Lives on [facility] and therefore no one is visiting. Exam Vital Signs (past 8 hours): - 08/14/22 02:00 08/14/22 06:00 08/14/22 04:10 Temperature 97.3 F L Pulse Rate 80 Respiratory Rate 18 Blood Pressure 107/66 Pulse Oximetry 91 93 91 Oxygen Delivery Method Nasal Cannula Nasal Cannula Oxygen Flow Rate 2.5 2.5 2.5 Oxygen Delivery Method Nasal Cannula Oxygen Flow Rate 2.5 Narrative Exam Narrative: GEN: no acute distress, on 2.5L nasal cannula HEENT: moist mucous membranes, PERRL NECK: trachea midline, no JVD CV: regular rate and rhythm, no murmurs PULM:? Chest is clear to auscultation. No wheezes or crackles. ABD: soft, nontender, nondistended, no organomegaly EXT: warm and well perfused with no edema NEURO: awake, alert, oriented, no focal deficits Objective Labs 08/14/22 06:41 08/14/22 06:41 Labs: Laboratory Results - last 24 hr 08/14/22 08/14/22 08/14/22 06:41 06:41 06:41 WBC 8.2 RBC 3.79 L Hgb 11.8 L Hct 35.0 L MCV 92.4 MCH 31.1 MCHC 33.7 RDW 12.9 Plt Count 395 Neut % (Auto) 73.1 Lymph % (Auto) 13.6 L [place] % (Auto) 8.1 Eos % (Auto) 4.7 H Baso % (Auto) 0.5 Neut # (Auto) 6000 Lymph # (Auto) 1100 [place] # (Auto) 700 Eos # (Auto) 400 Baso # (Auto) 0 Sodium 135 L Potassium 4.1 Chloride 100 Carbon Dioxide 25 BUN 32 H Creatinine 1.37 H Estimated GFR 41 L BUN/Creatinine Ratio 23.4 H Glucose 120 H Lactate 1.1 Calcium 8.9 PFSH Social History household members: spouse Smoking Status: Never smoker alcohol intake: current Assessment & Plan Assessment & Plan narrative: # community-acquired pneumonia -bilateral opacities suspicious for PNA seen on CXR and CTA chest, no PE -rocephin and azithro ordered -continue as ordered. -procal neg -dry cough so no sputum to collect -still requires O2 supplementation # possible CHF exacerbation -BNP elevated, rales on exam and severe exertional dyspnea -lasix 60 IV given in ED -continue lasix 60 IV BID, initiated yesterday. Continue. -diuresing well -echo ordered -expected to be completed today -strict I/O's # hypomagnesemia, resolved -mag 1.2, now 2 -continue with oral medication and monitor # lactic acidosis -LA of 4 in ED -improved to 3 with lasix initially and 1.1 normal today. # acute hypoxic resp failure, improving -on 4L NC in ED due to sats in 70's initially -secondary to first 2 problems -abx and diuresis -wean O2 as able, now at 2.5L # ANDI vs CKD, improving -Cr 1.22, prior was 1.07, however increased to 1.37 today likely secondary to increased diuresis. -monitor with diuresis -avoid nephrotoxic meds # prediabetes -hold metformin -A1c pending -low dose SSI # hypothryoidism ?TSH normal -continue thyroid meds # HTN -hold home GIANNA-i due to ANDI, plus patient is on diuresis affecting blood pressure, continues to be soft at 107/66 today # HLD -continue home statin Code status is full code. DVT prophylaxis with heparin subQ. Proxy is Shad. Dispo: Home in 1-2 days pending weaning of O2 and echo results. Expected echo today. Quality VTE Deep Vein Thrombosis/Pulmonary Embolism Present on Admission: No
[2022-08-14] MEDS: FUROSEMIDE 40 MG/4 ML VIAL 60 MG IV (09:08)
[2022-08-14] MEDS: AZITHROMYCIN 250 MG TABLET 500 MG PO (09:09)
[2022-08-14] MEDS: MAGNESIUM OXIDE 400 MG TABLET PO ×2 (09:10→21:07)
[2022-08-14] MEDS: predniSONE 20 MG TABLET 30 MG PO (17:07)
[2022-08-14] MEDS: FUROSEMIDE 40 MG TABLET PO (17:08)
[2022-08-14] MEDS: cefTRIAXone 1,000 MG in SODIUM CHLORIDE 0.9% 100 ML 200 MG IV (17:14)
[2022-08-14] MEDS: SODIUM CHLORIDE 0.9% 250 ML 21 ML IV (17:15)
[2022-08-14] MEDS: ATORVASTATIN 20 MG TABLET PO (21:07)
[2022-08-14] MEDS: HEPARIN 5,000 UNIT/ML VIAL 5000 UNIT SUBCUT (21:08)
[2022-08-15 01:13] LABS: x Labcorp Estim. Avg Glu (eAG) 117 mg/dL (.); x Labcorp Hemoglobin A1c 5.7 % (4.8-5.6)
[2022-08-15 04:33] VITALS: BP 134/68; PULSE 81; RESP 20; TEMP 36.2; O2SAT 91
[2022-08-15] MEDS: LEVOTHYROXINE 50 MCG TABLET PO (05:51)
[2022-08-15 06:00] VITALS: O2SAT 91
[2022-08-15 06:41] LABS: Add Manual Diff / Slide Review NO; Basophils Absolute Auto 0 /uL (0-100); Basophils Percent Auto 0.6 % (0-2); Eosinophils Absolute Auto 0 /uL (0-450); Eosinophils Percent Auto 0.1 % (2-4); Hematocrit 36.9 % (36-46); Hemoglobin 12.4 g/dL (12.0-16.0); Lymphocytes Absolute Auto 900 /uL (1100-4500); Mean Corpuscular HGB Conc 33.5 % (30-36); Mean Corpuscular Hemoglobin 30.9 PG (26-34); Mean Corpuscular Volume 92.4 fL (80-100); Monocytes Absolute Auto 400 /uL (0-900); Monocytes Percent Auto 5.4 % (3-14); Neutrophils Absolute Auto 5900 /uL (1500-7000); Neutrophils Percent Auto 81.9 % (50-75); Platelet Count 438 X10^3/uL (150-400); Red Blood Cell Count 3.99 X10^6/uL (4.0-5.2); Red Cell Distribution Width 12.8 % (11.6-14.8); White Blood Cell Count 7.2 X10^3/uL (4.5-11.0)
[2022-08-15 07:08] LABS: Alanine Aminotransferase 16 IU/L (<35); Albumin 4.1 g/dL (3.5-5.0); Alkaline Phosphatase 69 U/L (38-126); Aspartate Aminotransferase 43 IU/L (14-36); BUN Creatinine Ratio 27.4 (6-22); Bilirubin Total 0.5 mg/dL (0.2-1.3); Blood Urea Nitrogen 40 mg/dL (7-17); C-Reactive Protein Quant 3.1 mg/dL (<1.0); Calcium 9.6 mg/dL (8.4-10.2); Carbon Dioxide 26 mmol/L (22-32); Chloride 97 mmol/L (98-107); Estimated Glomerular Filt Rate 38 mL/min (>60); Globulin 4.3 g/dL (1.7-4.1); Glucose 126 mg/dL (80-110); HEMOLYSIS < 15 (0-50); Magnesium 1.9 mg/dL (1.6-2.3); Potassium 4.7 mmol/L (3.4-5.1); Sodium 135 mmol/L (137-145); Total Protein 8.4 g/dL (6.3-8.2)
[2022-08-15 07:13] LABS: NT-proBNP (BNP-Adult 18+) 156 pg/mL (<125)
[2022-08-15 08:00] VITALS: BP 123/64; PULSE 88; RESP 18; TEMP 36.4; O2SAT 93
[2022-08-15 08:02] LABS: Troponin I < 0.012 ng/mL (0.01-0.034)
[2022-08-15] MEDS: FUROSEMIDE 40 MG TABLET PO (08:46)
[2022-08-15] MEDS: AZITHROMYCIN 250 MG TABLET 500 MG PO ×2 (08:46→11:28)
[2022-08-15] MEDS: predniSONE 20 MG TABLET 30 MG PO (08:46)
[2022-08-15] MEDS: MAGNESIUM OXIDE 400 MG TABLET PO (08:46)
[2022-08-15 10:00] VITALS: O2SAT 91
--- NOTE | 2022-08-15 10:58 | P.DS_ITS ---
History of Present Illness History of Present Illness Date Patient Seen: 08/15/22 Chief complaint: SOB, says Pneumonia, 1 wk, getting worse Narrative: Patient feeling much better in his off oxygen at this time. Eager to go home. Discharge Providers Provider Date of admission: 08/12/22 18:49 Discharge Date: 08/15/22 Primary care physician: Perlita Pacheco MD Discharge provider: Elysia Lauren MD Summary Hospital Course Discharge Diagnosis: Community-acquired pneumonia Dry cough Dyspnea CHF secondary to pneumonia BNP elevated Reactive airway disease Hypomagnesemia Lactic acidosis, resolved prior to discharge Acute hypoxic resp failure, requiring O2 supplementation ANDI on CKD Prediabetes, on metformin Hypothryoidism HTN HLD Past medical history/comorbidities: Psoriatic arthritis Hospital Course: Ya Slater is a 72yo F with PMH of psoriatic arthritis, hypothyroidism, prediabetes, HTN, and HLD who presented with worsening exertional dyspnea as well as dry cough. Her cough and her dyspnea had been increasing in the 10 days prior to presentation. She was getting extremely winded with any movement. Was seen in Urgent Care and put on azithromycin after a CXR showed PNA. She says her cough improved with this but her dyspnea did not so she came to the ED. In the ED found to be hypoxic to 75% and placed on 4L NC. Denied CP, fevers, sore throat, abd pain, LE swelling or diarrhea. BNP 3605. LA of 4. CXR showed bilateral opacities concerning for PNA. CTA chest showed bilateral nodular opac ities consistent with PNA. She was given a dose of 60 IV lasix. Intravenous Lasix b.i.d. was continued and then transitioned to oral medications prior to discharge. Resistance in the expiration, patient was placed on prednisone 30 mg daily for a total of 5 days and this will be finished as an outpatient. All doses of ceftriaxone and azithromycin were completed prior to being discharged to home and the patient will be continued on Augmentin 500/125 t.i.d. for further 5 days. Patient stabilized off oxygen prior to discharge. On the day of discharge patient's C-reactive protein was still elevated at 3.1(hence the reason for further antibiotic following discharge) and BNP had decreased to 156. To maintain this, the patient was discharged on oral furosemide b.i.d.. Status at Discharge Cognitive/behavioral status at discharge: at baseline, oriented Functional status at discharge: independent ambulation Overall status at discharge: patient is progressing back to baseline Time Spent with Patient Time spent: Greater than 30 minutes Exam Vital Signs (past 8 hours): - 08/15/22 04:33 08/15/22 06:00 08/15/22 08:00 Temperature 97.1 F L 97.6 F Pulse Rate 81 88 Respiratory Rate 20 18 Blood Pressure 134/68 123/64 Pulse Oximetry 91 91 93 Oxygen Delivery Method Nasal Cannula Oxygen Flow Rate 1 0.5 08/15/22 07:00 08/15/22 10:00 Temperature Pulse Rate Respiratory Rate Blood Pressure Pulse Oximetry 91 Oxygen Delivery Method Nasal Cannula Room Air Oxygen Flow Rate 0 Oxygen Delivery Method Room Air Oxygen Flow Rate 0 Narrative Exam Narrative: GEN: no acute distress, on 2.5L nasal cannula HEENT: moist mucous membranes, PERRL NECK: trachea midline, no JVD CV: regular rate and rhythm, no murmurs PULM:? Chest is clear to auscultation.? No wheezes or crackles. ABD: soft, nontender, nondistended, no organomegaly EXT: warm and well perfused with no edema NEURO: awake, alert, oriented, no focal deficits Objective Labs 08/15/22 06:15 08/15/22 06:15 Labs: Laboratory Results - last 24 hr 08/12/22 08/15/22 08/15/22 14:20 06:15 06:15 WBC 7.2 RBC 3.99 L Hgb 12.4 Hct 36.9 MCV 92.4 MCH 30.9 MCHC 33.5 RDW 12.8 Plt Count 438 H Neut % (Auto) 81.9 H Lymph % (Auto) 12.0 L [place] % (Auto) 5.4 Eos % (Auto) 0.1 L Baso % (Auto) 0.6 Neut # (Auto) 5900 Lymph # (Auto) 900 L [place] # (Auto) 400 Eos # (Auto) 0 Baso # (Auto) 0 Sodium 135 L Potassium 4.7 Chloride 97 L Carbon Dioxide 26 BUN 40 H Creatinine 1.46 H Estimated GFR 38 L BUN/Creatinine Ratio 27.4 H Glucose 126 H Hgb A1c (Ref Lab) 5.7 H Estim Average Glucose 117 Calcium 9.6 Magnesium 1.9 Total Bilirubin 0.5 AST 43 H ALT 16 Alkaline Phosphatase 69 Troponin I C-Reactive Protein 3.1 H NT-Pro-B Natriuret Pep 156 H Total Protein 8.4 H Albumin 4.1 Globulin 4.3 H Albumin/Globulin Ratio 1.0 08/15/22 06:15 WBC RBC Hgb Hct MCV MCH MCHC RDW Plt Count Neut % (Auto) Lymph % (Auto) [place] % (Auto) Eos % (Auto) Baso % (Auto) Neut # (Auto) Lymph # (Auto) [place] # (Auto) Eos # (Auto) Baso # (Auto) Sodium Potassium Chloride Carbon Dioxide BUN Creatinine Estimated GFR BUN/Creatinine Ratio Glucose Hgb A1c (Ref Lab) Estim Average Glucose Calcium Magnesium Total Bilirubin AST ALT Alkaline Phosphatase Troponin I < 0.012 C-Reactive Protein NT-Pro-B Natriuret Pep Total Protein Albumin Globulin Albumin/Globulin Ratio PFSH Social History household members: spouse Smoking Status: Never smoker alcohol intake: current Discharge Plan Discharge Plan Patient Disposition: Home Discharge orders & Medications Prescriptions: New furosemide 40 mg Tablet 40 mg PO 0800,1700 Qty: 60 0RF magnesium oxide 400 mg (241.3 mg magnesium) Tablet 400 mg PO BID Qty: 20 0RF melatonin 3 mg Tablet 6 mg PO BEDTIME PRN (Reason: Insomnia) Qty: 15 0RF prednisone 20 mg Tablet 30 mg PO DAILY Qty: 4 0RF amoxicillin-pot clavulanate [Augmentin] 500-125 mg tablet 1 tab PO TID Qty: 15 0RF Continued quinapril 40 MG tablet 40 mg PO QDAY Qty: 90 3RF simvastatin 40 MG tablet 40 mg PO HS Qty: 90 3RF levothyroxine 50 MCG tablet 0.05 mg PO QAM Qty: 90 3RF metformin 1,000 MG tablet 1,000 mg PO BIDCC Qty: 180 3RF nitrofurantoin monohyd/m-cryst 100 mg capsule 100 mg PO DAILY Cosentyx (2 Syringes) 150 mg/mL syringe 300 mg SUBCUT QMONTH Follow up/Referrals: Perlita Pacheco MD [Primary Care Provider] - Visit Report/Discharge Packet Stand Alone Forms: Patient Portal/API, Stroke Signs & Symptoms Discharge Data Primary Care Provider: Perlita Pacheco Quality VTE Deep Vein Thrombosis/Pulmonary Embolism Present on Admission: No
[2022-08-15] MEDS: cefTRIAXone 1,000 MG in SODIUM CHLORIDE 0.9% 100 ML 200 MG IV (11:28)
[2022-08-15 12:04] VITALS: BP 111/70; PULSE 87; RESP 18; TEMP 36.8; O2SAT 93
[2022-08-15 14:00] VITALS: O2SAT 96
== END 2022-08-15 16:10 | disposition home or self-care (01) | DRG 193 ==
LOC: ED 18:29 → AC 18:50
PROVIDERS: Neuromusculoskeletal Medicine, Sports Medicine; Admitting Provider Student in an Organized Health Care Education/Training Program; Emergency Provider Emergency Medicine; PCP Family Medicine; Referring Provider Emergency Medicine; Visit Provider Student in an Organized Health Care Education/Training Program
DX: J18.9 Pneumonia, unspecified organism (principal); J96.01 Acute respiratory failure with hypoxia; E87.20 Acidosis, unspecified; N17.9 Acute kidney failure, unspecified; I13.0 Hypertensive heart and chronic kidney disease with heart failure and stage 1 through stage 4 chronic kidney disease, or unspecified chronic kidney disease; I50.9 Heart failure, unspecified; E83.42 Hypomagnesemia; R73.03 Prediabetes; E03.9 Hypothyroidism, unspecified; E78.5 Hyperlipidemia, unspecified; N18.9 Chronic kidney disease, unspecified; J45.909 Unspecified asthma, uncomplicated; Z20.822 Contact with and (suspected) exposure to COVID-19
CPT/HCPCS: 36415; 71045; 71046; 71275; 80048; 80053; 81003; 81015; 82550; 82962; 83036; 83605; 83735; 83880; 84145; 84443; 84484; 85025; 85610; 86140; 87040; 93005; 93306; 94760; 96365; 96368; 99285; 99291; J0696; J1644; J1940; J3475; Q9957; Q9967

== ENCOUNTER → 2022-12-09 11:51 | Outpatient (CLI) | payer MEDICARE, SELFPAY ==
[2022-08-12 19:04] VITALS: BMI 26.6
--- NOTE | 2022-12-09 | DI.CT.S_ITS ---
PROCEDURE: CT CHEST WO CON INDICATIONS: ABNORMAL XRAY TECHNIQUE: Noncontrast 5 mm thick sections acquired from the pulmonary apices to the posterior costophrenic angles. 1 mm lung window, 5 mm thick coronal and sagittal and 7 mm axial MIP reformats were then acquired. For radiation dose reduction, the following was used: automated exposure control, adjustment of mA and/or kV according to patient size. COMPARISON: [facility], CT, CT ANGIO CHEST PE PROTOCOL, 08/12/2022, 15:15. FINDINGS: Image quality: Excellent. Lungs and pleura: No acute air space opacities. Previously seen diffusely scattered ill-defined airspace opacities involving the bilateral hemithoraces have essentially resolved. A few peripheral streaky opacities likely representing scarring versus subsegmental atelectasis. No new focal airspace disease identified. No suspicious pulmonary nodules or mass lesions. Visualized airways appear clear. Atelectasis of the inferior lingula. No evidence to suggest significant bronchiectasis. No substantial pleural effusion. No pneumothorax. Central and peripheral airways are patent and normal in caliber. Mediastinum: Heart size is normal. No pericardial effusion. Coronary atherosclerotic vascular calcifications are noted. No mediastinal adenopathy by size criteria. Thoracic aorta and central pulmonary arteries are normal in size. Esophagus is normal in caliber. No hiatal hernia. Bones and chest wall: No suspicious bony lesions. No acute vertebral body compression fractures. No axillary or supraclavicular adenopathy by size criteria. Thyroid gland is unremarkable . Multilevel spondylosis of the imaged spine. Abdomen: Visualized upper abdominal solid organs and bowel loops appear normal in the absence of contrast. IMPRESSION: CT chest without acute cardiopulmonary abnormalities. Near complete resolution of previously seen diffuse bilateral airspace opacities. Atherosclerosis. Dictated by: Krish Love M.D. on 12/09/2022 at 12:31 Approved by: Krish Love M.D. on 12/09/2022 at 12:56
--- NOTE | 2022-12-09 | DI.US.S_ITS ---
LIMITED ULTRASOUND OF LEFT BREAST: 12/09/2022 CLINICAL: 6 month follow-up of cysts. Comparison is made to exams dated: 12/09/2022 mammogram, 04/25/2022 ultrasound, 04/25/2022 mammogram, 03/31/2022 mammogram, 03/12/2021 mammogram - [facility], and 11/12/2018 mammogram - outside location. Color flow and real-time ultrasound of the left breast 11 o'clock region were performed. Boyce scale images of the real-time examination were reviewed. There is a stable 0.4 cm x 0.3 cm x 0.3 cm oval complicated cyst with a septated internal wall in the left breast at 11 o'clock anterior depth 3 cm from the nipple. Color flow imaging demonstrates that there is no vascularity present. This may correlate with the mammographic finding. IMPRESSION: PROBABLY BENIGN The stable 0.4 cm complicated cyst in the left breast is probably benign. A follow-up ultrasound in 6 months is recommended to demonstrate stability. Patient will be due for mammogram at that time. Exam findings were conveyed to the patient. This exam was interpreted at Station ID: [id number]. Electronically Signed By: Juwan Robles M.D. slc/:12/09/2022 13:28:19 letter sent: Followup Recommended Ultrasound BI-RADS: 3 Probably benign
--- NOTE | 2022-12-09 | DI.MG.S_ITS ---
UNILATERAL LEFT DIGITAL DIAGNOSTIC MAMMOGRAM 3D/2D: 12/09/2022 CLINICAL: Short term follow up for the left breast. Comparison is made to exams dated: 04/25/2022 mammogram, 03/31/2022 mammogram, 03/12/2021 mammogram - [facility], and 11/12/2018 mammogram - outside location. There are scattered areas of fibroglandular density in the left breast (category b / 25%-50% glandular tissue). There is a benign calcification in the left breast. There are stable 0.5 cm grouped punctate calcifications in the left breast at 9 o'clock anterior depth. No other significant masses or calcifications are seen in the breast. 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 A targeted ultrasound is recommended and will immediately follow. Based on the Tyrer Cuzick model (a risk assessment model) the patient's lifetime risk is 7.4% and her 10 year risk is 5.5%. According to the ACR, ACS, and NCCN guidelines, an annual breast MRI exam along with mammogram is recommended if the patient's lifetime risk is 20% or greater. This exam was interpreted at Station ID: [id number]. NOTE: For mammograms, a report in lay terms will be sent to the patient. Approximately 15% of breast malignancies will not be visualized mammographically. In the management of a palpable breast mass, a negative mammogram must not discourage biopsy of a clinically suspicious lesion. Electronically Signed By: Juwan Robles M.D. slc/:12/09/2022 12:45:44 ACR BI-RADS Category 0: Incomplete 3340F
== END ==
PROVIDERS: PCP Family Medicine; Referring Provider Family Medicine; Visit Provider Family Medicine
DX: R92.8 Other abnormal and inconclusive findings on diagnostic imaging of breast (principal); R93.89 Abnormal findings on diagnostic imaging of other specified body structures; R92.1 Mammographic calcification found on diagnostic imaging of breast; I25.10 Atherosclerotic heart disease of native coronary artery without angina pectoris; N60.02 Solitary cyst of left breast
CPT/HCPCS: 71250; 76642; 77065; G0279

== ENCOUNTER → 2023-06-27 13:11 | Outpatient (CLI) | payer MEDICARE, SELFPAY ==
[2022-08-12 19:04] VITALS: BMI 26.6
--- NOTE | 2023-06-27 13:13 | DI.US.S_ITS ---
LIMITED SECONDLOOK ULTRASOUND OF LEFT BREAST: 06/27/2023 CLINICAL: 6 month follow-up of cysts. Patient returns for additional imaging over a suspected mass in the left breast. Additional evaluation requested from prior study. Follow up from addtional views. Comparison is made to exams dated: 06/27/2023 mammogram, 12/09/2022 ultrasound, 12/09/2022 mammogram, 04/25/2022 ultrasound, and 04/25/2022 mammogram - [facility]. Color flow ultrasound of the left breast 10-11 o'clock region was performed. Boyce scale images of the real-time examination were reviewed. There is a benign 0.2 cm x 0.3 cm x 0.3 cm oval cyst in the left breast at 11 o'clock middle depth 3 cm from the nipple. This oval cyst is anechoic with posterior acoustic enhancement. Color flow imaging demonstrates that there is no vascularity present. There also is a benign 0.4 cm x 0.3 cm x 0.3 cm oval cyst in the left breast at 11 o'clock anterior depth 3 cm from the nipple. This oval cyst is hypoechoic with internal echoes. This correlates with mammography findings. There are related rim calcifications. Color flow imaging demonstrates that there is no vascularity present. IMPRESSION: BENIGN There is no sonographic evidence of malignancy. The 0.2 cm x 0.3 cm x 0.3 cm oval cyst in the left breast at 11 o'clock middle depth is consistent with an oil cyst and is benign. The 0.4 cm x 0.3 cm x 0.3 cm oval cyst in the left breast at 11 o'clock anterior depth is consistent with an oil cyst and is benign. Return to annual mammogram screening schedule is recommended. This exam was interpreted at Station ID: [id number]. Electronically Signed By: Nav steinberg/kirstie:06/27/2023 15:40:10 letter sent: Normal Exam Ultrasound BI-RADS: 2 Benign
--- NOTE | 2023-06-27 13:13 | DI.MG.S_ITS ---
BILATERAL DIGITAL DIAGNOSTIC MAMMOGRAM 3D/2D: 06/27/2023 CLINICAL: Left short term follow up. Comparison is made to exams dated: 12/09/2022 mammogram, 04/25/2022 mammogram, 03/31/2022 mammogram, 03/12/2021 mammogram, 12/09/2022 ultrasound, and 04/25/2022 ultrasound - [facility]. There are scattered areas of fibroglandular density in both breasts (category b / 25%-50% glandular tissue). There is a benign calcification in the left breast. There are stable 0.4 cm grouped rim calcifications in the left breast at 9 o'clock anterior depth. Additional small adjacent rim calcifications are seen with lucent centers. No other significant masses, calcifications, or other findings are seen in either breast. IMPRESSION: INCOMPLETE: NEEDS ADDITIONAL IMAGING EVALUATION The stable 0.4 cm grouped rim calcifications in the left breast resemble fat necrosis and are indeterminate. An ultrasound is recommended. Based on the Tyrer Cuzick model (a risk assessment model) the patient's lifetime risk is 6.9% and her 10 year risk is 5.7%. According to the ACR, ACS, and NCCN guidelines, an annual breast MRI exam along with mammogram is recommended if the patient's lifetime risk is 20% or greater. This exam was interpreted at Station ID: [id number]. NOTE: For mammograms, a report in lay terms will be sent to the patient. Approximately 15% of breast malignancies will not be visualized mammographically. In the management of a palpable breast mass, a negative mammogram must not discourage biopsy of a clinically suspicious lesion. Electronically Signed By: Nav steinberg/kirstie:06/27/2023 15:37:19 ACR BI-RADS Category 0: Incomplete 3340F
== END ==
PROVIDERS: PCP Family Medicine; Referring Provider Family Medicine; Visit Provider Family Medicine
DX: R92.8 Other abnormal and inconclusive findings on diagnostic imaging of breast (principal); N60.02 Solitary cyst of left breast; R92.323 Mammographic fibroglandular density, bilateral breasts
CPT/HCPCS: 76642; 77066; G0279

== ENCOUNTER → 2023-08-03 14:19 | Outpatient (CLI) | payer MEDICARE, SELFPAY ==
[2022-08-12 19:04] VITALS: BMI 26.6
--- NOTE | 2023-08-03 14:21 | DI.CT.S_ITS ---
PROCEDURE: CT LUMBAR SPINE WO CON INDICATIONS: Spinal stenosis, lumbar region TECHNIQUE: Noncontrast 0.8 mm thick sections acquired from the T12 level to the sacrum. Sagittal and coronal reformats were constructed. For radiation dose reduction, the following was used: automated exposure control. COMPARISON: [facility], MR, MR LUMBAR SPINE WO CON, 03/31/2022, 11:45. FINDINGS: Image quality: Excellent. Bones: No acute vertebral body compression fractures. No suspicious lytic or blastic bony lesions. No pars defects. Mild dextroconvex scoliotic curvature is seen. There is minimal anterolisthesis seen at the L3-L4 level. T12-L1: There is at least moderate loss of disc height. Endplate irregularity and sclerosis can be seen. Vacuum disc phenomenon is seen at this level. Bridging endplate osteophytes are seen. Moderate generalized disc bulge is seen. Moderate bilateral neural foraminal narrowing is seen. Moderate central canal narrowing is seen. L1-L2: The disc height is well preserved. Mild generalized disc bulge is seen. There is [id number] right-sided and mild left-sided neural foraminal narrowing. Mild central canal narrowing is seen. L2-L3: The disc height is well preserved. Moderate disc bulge is seen. There is a right foraminal disc protrusion, as on series 5, image 40. At least moderate facet hypertrophy is seen. There is at least moderate right-sided and moderate left-sided neural foraminal narrowing. With least moderate of central canal narrowing is seen at this level. L3-L4: Mild loss of disc height is seen. Loss of disc signal is seen. Moderate disc bulge is seen, which is eccentric to the left. Vacuum disc phenomenon is seen at this level. Prominent facet hypertrophy is seen. There is at least moderate right-sided and moderate to severe left-sided neural foraminal narrowing. Moderate to severe central canal narrowing is seen. L4-L5: The disc height is relatively well preserved. Moderate disc bulge is seen, with a central disc extrusion, with superior migration of the disc material. At least moderate facet hypertrophy can be seen. There is moderate to severe bilateral neural foraminal narrowing. At least moderate central canal narrowing is seen. L5-S1: Moderate to severe loss of disc height is seen. There is a degree of vertebral body fusion seen. Moderate generalized disc bulge is seen. Moderate facet joint hypertrophy is seen. There is moderate to severe right-sided and moderate left-sided neural foraminal narrowing. Minimal central canal narrowing is seen. Soft tissues: No retroperitoneal masses or hematomas. Visualized aorta is normal in caliber. Atherosclerotic calcification is noted. IMPRESSION: Multiple levels of significant lumbar spine degenerative change can be seen, which are overall worst inferiorly. Dictated by: Austen Kirby M.D. on 08/03/2023 at 15:39 Approved by: Austen Kirby M.D. on 08/03/2023 at 15:45
== END ==
PROVIDERS: PCP Family Medicine; Referring Provider Orthopaedic Surgery Orthopaedic Surgery of the Spine; Visit Provider Orthopaedic Surgery Orthopaedic Surgery of the Spine
DX: M48.062 Spinal stenosis, lumbar region with neurogenic claudication (principal); M47.816 Spondylosis without myelopathy or radiculopathy, lumbar region; M47.817 Spondylosis without myelopathy or radiculopathy, lumbosacral region
CPT/HCPCS: 72131

== ENCOUNTER 2023-09-06 07:28 | Inpatient (IN) | payer MEDICARE, SELFPAY ==
[2022-08-12 19:04] VITALS: BMI 26.6
[2023-08-29 12:43] VITALS: BMI 30.4
[2023-09-06] VITALS (15 sets, daily range): BP systolic 84–168; BP diastolic 40–80; PULSE 72–98; RESP 8–20; TEMP 35.9–36.8; O2SAT 91–100; BMI 30.2
--- NOTE | 2023-09-06 | DI.RAD.S_ITS ---
PROCEDURE: XR LUMBAR SPINE 2-3V INDICATIONS: TLIF L3-4, L4-5 TECHNIQUE: 2 views of the lumbar spine were acquired. COMPARISON: [facility], [place], XR LUMBAR SPINE 2-3V, 08/31/2021, 11:35. Findings and impression: Two views of the lumbar spine show L3 to L5 posterior fusion hardware with interbody spacers . Please see operative note full details Dictated by: Carl Crews M.D. on 09/06/2023 at 12:55 Approved by: Carl Crews M.D. on 09/06/2023 at 12:56
[2023-09-06] MEDS: LACTATED RINGERS 1,000 ML 42 ML IV ×2 (08:05→11:11)
[2023-09-06] MEDS: ACETAMINOPHEN 325 MG TABLET 975 MG PO (08:05)
--- NOTE | 2023-09-06 08:40 | PM.PREOP ---
Pre-operative Note Interval Note History & Physical reviewed/Exam performed by Physician: Yes Changes to H&P: No
[2023-09-06] MEDS: CEFAZOLIN 2 GM/100 ML PREMIX 100 ML IV ×2 (08:43→16:41)
--- NOTE | 2023-09-06 09:34 | SUR.OPER ---
Prone on spine table, head in foam head support, padded chest and pelvic supports, gel pad at knees, lower legs supported by pillows; nipples, genitalia and toes free of pressure, arms secured on foam padded arm boards at <90 degrees abduction. Tape over blanket at thigh secured to table. CONFIRMED BY DR. STEPHENSON.
[2023-09-06] MEDS: BUPIVACAINE 0.25% (PF) 60 ML, EPINEPHrine 0.15 MG INJ (10:04)
[2023-09-06] MEDS: BUPIVACAINE LIPOSOME 266 MG/20 ML VIAL INJ (11:44)
--- NOTE | 2023-09-06 12:05 | PM.OP.1 ---
Operative Date/Time/Diagnoses Date of procedure: 09/06/23 Time of procedure: 08:40 Pre-op diagnosis: 1. L3-4, L4-5 spinal stenosis with neurogenic claudication 2. L3-4, L4-5 spondylolisthesis Post-op diagnosis: same Procedure & Clinicians Procedure: 1. L3-4, L4-5 Postero-lateral and posterior interbody fusion 2. L3-4, L4-5 interbody cage placement. 3. L3-4, L4-5 decompressive laminectomy with bilateral facetecomies 4. L3-4, L4-5 Posterior segmental instrumentation 5. [place] of bone marrow from iliac crest 6. Utilization of microsurgical technique and operating microscope Same procedure as scheduled: Yes Indications: Patient has been having chronic back pain and worsening lumbar radiculopathy and symptoms of neurogenic claudication. Patient has MRI showing L3-4 L4-5 anterolisthesis with severe spinal stenosis correlating with her symptoms. Patient failed multiple conservative management with worsening pain weakness and numbness in her lower extremity. Patient has been having difficulty performing activity of daily living. After discussing risks benefits of treatment options, patient elected proceed with surgery. Surgeon: Jody Chiang Developer Architect: Mary Zaragoza Click Yes if Unassisted: No Anesthesia Type: General Operative Notes Closure Type: primary Specimen(s): none sent Prosthetic devices, grafts, tissues, transplants, or devices: Globus CREO MIS screws, Rise cages Applied: catheter Estimated Blood Loss (mL): 100 Blood products transfused: none Procedure in detail: Patient was seen in the preoperative area. Risks and benefits of the surgery was discussed with the patient. Informed consent was obtained from the patient and placed in the chart. Surgical site was marked. Patient was taken to the operative room. General anesthesia was administered. Prophylactic antibiotic was given to the patient less than 30 min before the incision was made. Patient was placed into a prone position on the Bridger table. Patient's back was then prepped and draped in the sterile fashion. Time-out was performed at this time. After patient was prepped and draped, patient's PSIS was palpated and marked bilaterally. Small 1 cm incision was made over the PSIS for placement of the reference probes. Two trocar was placed into the PSIS 1 on each side. The reference probe was attached to the trocar of the reference apparatus. At this time the C-arm imaging was used to confirm AP and lateral of L3, L4-L5 vertebrae and merged the C-arm imaging using the [employer] robotic navigation system with the CT of the lumbar spine. After successful merging was completed and confirmed, skin marker was used to josesito out the skin incision using the [employer] robotic arm. Bilateral incision was made at this time. Pre templated trajectory was used and guided using the [employer] robotic navigation system for bilateral L3 L4, L5 pedicle screw placement. This was done by using the robotic arm to guide the high-speed bur to make a cortical entry point. Next a drill was placed also using the robotic arm and guided using the navigation system drilling partially through bilateral L3, L4, L5 pedicles. Next L3, L4, L5 pedicle screws it was pre templated and measured was placed onto the power commercial driver and inserted into the pedicles bilaterally. After all 6 screws were placed C-arm imaging was taken of both AP and lateral to confirm the placement. Excellent placement of the screws were confirmed and a matched precisely with the pre planned screw placement using the navigation system. MARs retractor was inserted using [employer] guidence. Globus MARS retractors was placed inside the incision and docked onto the L3, L4 lamina. Using microsurgical technique and operating microscope, a L3, L4 laminectomy and L3-4, L4-5 facetectomy was performed using a Kerrison rongeur. The laminectomy and facetectomy was performed in order to decompress patient's cauda equina as well as the nerve roots exiting at the L3-4, L4-5 level. Patient was found have severe central stenosis, lateral recess and neural foramen stenosis which was fully decompressed after the laminectomy facetectomy. More than 75% of the facets were removed during the process of decompression rendering L3-4, L4-5 level grossly unstable and required a fusion procedure at the same time. The disc space at L3-4, L4-5 was identified, and a total diskectomy was performed at L3-4, L4-5 level. The endplates were decorticated using a rasp and shaver. The total diskectomy and decortication was performed at L3-4, L4-5 level in order to to accomplish a L3-4, L4-5 fusion. The local bone from the laminectomy and facetectomy was saved for local bone grafting. After the total diskectomy and decortication was completed, Viacel bone graft material was combined with local bone that was harvested earlier. At this time, a separate skin is incision was made over the iliac crest on the left. A Jamshidi needle was inserted into the iliac crest through a separate skin incision. 5 cc of bone marrow aspiration was obtained through the separate skin incision using a Jamshidi needle from the iliac crest. The bone marrow aspiration was combined with local bone and the Viacel bone grafting material. The bone grafting material was placed into the L3-4, L4-5 interbody space along with expandable cages. One cage each was inserted into the L3-4 L4-5 interbody space along with bone graft material. The cage was expanded to its maximum height using the torque limiting screwdriver. The disc preparation as well as the cage insertion were also performed under navigation guidance. After the cage was placed, AP and lateral C-arm imaging was taken to confirm placement of the cage and excellent position was confirmed. Globus MARS retractor was inserted and docked onto the L3-4, L4-5 posterolateral gutter on the right side. Using the power drill, posterior-lateral decortication was performed at L3-4, L4-5 level until bleeding cortical bone was identified. The remaining bone grafting material was placed into the L3-4, L4-5 posterior lateral gutter he order to accomplish posterolateral fusion at the L3-4, L4-5 level. At this time the tulips were attached to the L3, L4-L5 pedicle screw shanks. After measuring the length of the rods, they were inserted into the tulips of the pedicle screws and locked in place using locking caps and torque limiting screwdriver bilaterally. Total 6 caps and 2 titanium rods was used in order to complete the posterior instrumentation construct. After all the hardware was placed, and confirmed with AP and lateral C-arm imaging, the wound was then irrigated with sterile normal saline and packed with Ray-Carly gauze for 3 min to accomplish hemostasis. After the gauze was removed the deep fascia was closed with #1 Vicryl suture. The subcutaneous layer was closed with 2-0 Vicryl. The skin was closed with skin rene. Patient tolerated the procedure well. There were no complications. Neuro monitoring system was used to monitor patient's neurologic status throughout entire procedure. There was no disturbance of the neural monitoring signals throughout the case. The Operation could not have been safely performed without compromising the technical result or length of the procedure, without the assistance of a skilled surgical technician. The surgical technician was medically necessary for proper positioning, retraction and manipulation of instruments, proper exposure, surgical preparation, and manipulation of tissue. Complications: none Post-operative Condition: stable Disposition: PACU Plan for aftercare: Admit to inpatient hospital
--- NOTE | 2023-09-06 14:20 | PT.IIE ---
Current Diagnoses Spondylolisthesis, lumbar region (09/06/23) Spinal stenosis, lumbar region with neurogenic claudication (09/06/23) Surgery Performed Operation Date: 09/06/23 08:45 Actual Procedures p L3-4, L4-5 TRANSFORAMINAL LUMBAR INTERBODY FUSION WITH POSTERIOR INSTRUMENTATION - ROBOT - Jody Chiang MD Surgical History (Last Updated 08/29/23 @ 13:24 by Rakel Hammond, RN) History of History of gynecologic surgery History of hysterectomy Hx of hernia repair (~2001) Hx of tubal ligation Medical History (Last Updated 08/29/23 @ 13:50 by Rakel Hammond RN) Anesthesia complication Fatty liver History of COVID-19 (10/2022) HLD (hyperlipidemia) HTN (hypertension) Hypothyroid Pre-diabetes Psoriasis Psoriatic arthritis Spinal stenosis Physical Therapy Inpatient Evaluation/Re-Eval M1 PT/OT-IP Prior Functional Status Start: 09/06/23 16:25 Freq: NEEDED Status: Active Protocol: Document 09/06/23 14:20 AB (Rec: 09/06/23 16:40 AB [id number]) Medical Review Prior Functional Status Medical History Reviewed Yes Communication able to make needs known Mobility and Gait pt stated that she was independent with all mobilities and ambulation without AD Activities of Daily Living and IADL's per OT note: Pt able to do all ADL and IADl needs. Social History Household Members spouse Living Arrangements House Number of Floors (Floors) Two Floors Number of Stairs To Enter/Railing? pt lives at [facility] no steps to enter the house and pt can stay in the main level of the house but pt wants to be able to get to the upstairs bed room: 13 steps B rails Home Environment High Toilet,Walk in Shower, Built-In Shower Seat Home Equipment Front Wheel Walker,Straight Cane,Hand Held Shower,Long Handled Sponge,Long Handled Shoe Horn,Metal Wire Technician,Grab Bars In Shower Additional Social History Comment pt has a walking cane M2 PT-IP Current Condition Start: 09/06/23 16:25 Freq: NEEDED Status: Active Protocol: Document 09/06/23 14:20 AB (Rec: 09/06/23 16:40 AB [id number]) Physical Therapy Current Condition Current Condition Evaluation Date 09/06/23 Treatment Diagnosis s/p L3-4, L4-5 TLIF; difficulty in walking Onset Date 09/06/23 M3 PT-IP Subjective Start: 09/06/23 16:25 Freq: NEEDED Status: Active Protocol: Document 09/06/23 14:20 AB (Rec: 09/06/23 16:40 AB [id number]) Subjective Physical Therapy Visit Type Type Initial Evaluation Visit Start Time 14:20 Visit Stop Time 15:05 Number of INFORMATION SERVICES CONSULTANT Visits 0 Physical Therapy Visit Comments Patient Comments agreeable to do PT Therapy Pain Assessment Pain When Pain Assessed At Rest Pain Present Pain Present Pain Reported Location back Intensity 6 Scale Used Numeric (0 - 10) Pain Behaviors Guarding Pain Management Techniques Apply Cold,Distraction, Modification of Treatment,Re- positioning,Timing of Activity with Medications M4 PT-IP Mobility and Gait Start: 09/06/23 16:25 Freq: NEEDED Status: Active Protocol: Document 09/06/23 14:20 AB (Rec: 09/06/23 16:40 AB [id number]) PT-Bed Mobility Assessment Rolling Type of Rolling Log Rolling Level of Assist Minimal Assistance Supine to Sit Supine to Sit Minimal Assistance PT-Transfer Assessment Sit to and From Stand Sit to and from Stand Minimal Assistance,1 Person Assistance Equipment Transfer Assistive Device Gait Belt,Front Wheeled Walker ,Forearm Crutches Orthotic/Prosthetic Devices or Brace: No Transfers Transfer Destination Chair Transfer Technique ambulated Transfer Ability Level of Assist Minimal Assistance,Moderate Assistance,1 Person Assistance ,Use of Upper Extremities Comments Mobility Comments pt supine in bed and agreeable to do PT. obtained PLOF and home set up from pt. post-op folder provided and reviewed contents. educated pt regarding back precautions and log roll bed mobility. pt completed supine to sit log roll min A and max cues. pt able to sit on EOB CGA. pt completed sit to stand min A and cues and ambulated in room ~ 12 ft using fWW min to mod A and cues. presents with increase forward flexion, unsteady shuffling gait. pt sat on the chair and agreed to sit up on the chair. positioned pt on the chair. ice pack provided. call light and table placed within reach. Gait Assessment Gait Gait Assistance Required: Minimum Assistance,Moderate Assistance,1 Person Assist Distance (Feet) 12 Able to Maintain Weight Bearing Status Yes During Gait Assistive Devices Assistive Device Gait Belt,Front Wheeled Walker Orthotic/Prosthetic Devices or Brace: No Gait Deviations General Gait Pattern Decreased Stride Length, Decreased Feet Clearance, Flexed Trunk,Step-to Gait Factors Limiting Gait Function Factors Limiting Gait Function Decreased Activity Tolerance, Decreased Strength,Difficulty Following Directions,Limited Range of Motion,Pain,Poor Balance,Poor Safety Awareness PT-Balance Assessment Sitting Balance and Reactions Static Sitting Balance Ability Good Dynamic Sitting Balance Ability Fair Standing Balance and Reactions Static Standing Balance Ability Fair Dynamic Standing Balance Ability Poor Device Used FWW M5 PT-IP Objective Assessments Start: 09/06/23 16:25 Freq: NEEDED Status: Active Protocol: Document 09/06/23 14:20 AB (Rec: 09/06/23 16:40 AB [id number]) Orientation Orientation/Cognition Level of Alertness Alert Orientation Name,Place,Situation Language Function Ability No Deficits Noted Safety Awareness Decreased Safety Awareness Memory Description Short Term Impaired Gross Range of Motion Lower Extremity ROM Assessment Within Functional Limits Strength Lower Extremity Strength Assessment Within Functional Limits Sensation Assessment Sensation Gross Sensation WNL Muscle Tone Muscle Tone WNL Yes M6 PT-IP Treatment Start: 09/06/23 16:25 Freq: NEEDED Status: Active Protocol: Document 09/06/23 14:20 AB (Rec: 09/06/23 16:40 AB [id number]) Physical Therapy Treatment Education Education Provided Precautions,Weight Bearing Status,Post-Op Packet,Safety M7 PT-IP Assessment and Plan Start: 09/06/23 16:25 Freq: NEEDED Status: Active Protocol: Document 09/06/23 14:20 AB (Rec: 09/06/23 16:40 AB [id number]) PT Summary Assessment and Plan Potential Rehabilitation Potential Good Status of Condition at Evaluation Evolving Summary Impairments Pain,ROM,Strength,Balance, Coordination,Sensation,Tone, Cognition,Bed Mobility, Transfers,Gait,Activity Tolerance Assessment Summary pt is a 73 y/o F s/p L3-4, L4- 5 TLIF POD 0. pt has back precautions. pt requiring min A to mod A with ambulation using FWW at this time. pt will likely progress with mobility during hospital stay. pt lives with spouse and plans to assist pt at home. will conduct caregiver training when appropriate. will continue to assess progress. Goals Bed Mobility Goal Independent Transfer Goal Independent,Front Wheeled Walker Gait Goal Independent,Front Wheel Walker Gait Distance 200 Other Goals up/down 13 steps B rails SBA Days to Meet Goals 5 Frequency of Treatment Frequency Of Treatment Twice a Day Other frequency or as tolerated Treatment Plan Physical Therapy Treatment Plan Bed Mobility Training,Transfer Training,Gait Training, Therapeutic Exercise,Balance Retraining,Post Op Education, Discharge Planning,Hot or Cold Pack,Neuromuscular Re-ed, Coordination Retraining,Manual Therapy Precautions Lumbar Precautions Log Roll,No Twisting,Limit Bending,Lifting Restriction of 10 lbs,Gait Belt above Incisional Area Recommendations To Nursing Amount of Assist Needed 1 Person Assist Discharge Recommendations PT Discharge Recommendations Home with 12/09 Assist Available,Home Health Transportation Needs at Discharge Private Vehicle,Wheelchair/ Cabulance
[2023-09-06] MEDS: OXYCODONE IR 5 MG TABLET PO ×2 (14:24→21:44)
--- NOTE | 2023-09-06 14:34 | PC.NURSE ---
Pt to room 214 via bed from PACU. Spouse Shad is at the bedside. Pt is awake, alert, and oriented x 4. Denies pain (though states her back feels tight. Pt denies nausea, numbness or shortness of breath. IV infusing as ordered. SCD's on and running. Inspected back dsg and it is clean dry and intact. Performed I.S. teaching with Pt and Pt was able to demonstrate back with goal achieved. Oriented Pt to room, call light, bed controls, and tv controls. Reviewed back precautions with Pt - no bending, lifting, or twisting, and must logroll in/out of bed. Pt agrees to call for assistance as needed and to not get out of bed without assistance. Bed alarm is on for safety.
--- NOTE | 2023-09-06 15:30 | OT.IP.EVAL ---
Current Diagnoses Spondylolisthesis, lumbar region (09/06/23) Spinal stenosis, lumbar region with neurogenic claudication (09/06/23) Surgery Performed Operation Date: 09/06/23 08:45 Actual Procedures p L3-4, L4-5 TRANSFORAMINAL LUMBAR INTERBODY FUSION WITH POSTERIOR INSTRUMENTATION - ROBOT - Jody Chiang MD Past Medical History (Last Updated 08/29/23 @ 13:50 by Rakel Hammond, RN) Anesthesia complication Fatty liver History of COVID-19 (10/2022) HLD (hyperlipidemia) HTN (hypertension) Hypothyroid Pre-diabetes Psoriasis Psoriatic arthritis Spinal stenosis Surgical History (Last Updated 08/29/23 @ 13:24 by Rakel Hammond RN) History of History of gynecologic surgery History of hysterectomy Hx of hernia repair (~2001) Hx of tubal ligation Occupational Therapy Inpatient Evaluation/Re-Eval M1 PT/OT-IP Prior Functional Status Start: 09/06/23 15:31 Freq: NEEDED Status: Active Protocol: Document 09/06/23 15:31 [facility] (Rec: 09/06/23 15:45 [facility] [id number]) Medical Review Prior Functional Status Communication Independent Mobility and Gait Pt independent but has a cane with seat attached that she uses for longer distances. Pt mainly had pain when standing. Activities of Daily Living and IADL's Pt able to do all ADL and IADl needs. Social History Household Members spouse Living Arrangements House Number of Floors (Floors) Two Floors Number of Stairs To Enter/Railing? Pt states has no steps to enter and able to stay on the main level. Home Environment High Toilet,Walk in Shower Home Equipment Front Wheel Walker,Straight Cane,Shower Seat without Backrest,Hand Held Shower,Long Handled Sponge,Long Handled Shoe Horn,Personal Care Aide Additional Social History Comment Pt has a cane with seat attached. M2 OT-IP Current Condition Start: 09/06/23 15:31 Freq: Status: Active Protocol: Document 09/06/23 15:31 [facility] (Rec: 09/06/23 15:45 [facility] [id number]) Occupational Therapy Current Condition Current Condition Evaluation Date 09/06/23 Treatment Diagnosis S/P L3-4, L4-5 TLIF Post Operative Precautions Lumbar Precautions Log Roll,No Twisting,Limit Bending,Lifting Restriction of 10 lbs,Gait Belt above Incisional Area M3 OT- IP Subjective and Pain Start: 09/06/23 15:31 Freq: Status: Active Protocol: Document 09/06/23 15:31 [facility] (Rec: 09/06/23 15:45 [facility] [id number]) OT- Subjective Occupational Therapy Visit Type Type Initial Evaluation Visit Start Time 14:55 Visit Stop Time 15:30 Occupational Therapy Visit Comments Patient Comments Pt agreed to get up with OT. Patient/Caregiver Goals TO go home. OT Pain Assessment Pain When Pain Assessed During Mobility Pain Present Pain Present Pain Reported Location back Intensity 5 Scale Used Numeric (0 - 10) M4 OT- IP ADL's Start: 09/06/23 15:31 Freq: Status: Active Protocol: Document 09/06/23 15:31 [facility] (Rec: 09/06/23 15:45 [facility] [id number]) OT [id number] Comments OT Self-Feeding Comments Not at meal time. OT ADL-Grooming Comments OT Grooming Comments Pt able comb her hair while seated. OT ADL-Oral Care Comments Oral Care Comments Pt states already did this morning. Educated best to spit into a cup or hinge at her hips to best follow her back precautions. OT ADL-Dressing General Eval Lower Body Dressing Ability Maximum Assistance Areas Needing Assistance Socks Comments OT Dressing Comments Pt states her will assist her as needed. OT ADL-Toileting Comments OT Toileting Comments Cross in place. Spoke of use of pads at night , BSC next to her if needed. Pt states if sleeps in the sofa recliner that the bathroom will be 20ft away. Pt able to stand and comfortably reach back to wipe and follow her back precautions. OT ADL-Bathing Comments OT Bathing Comments Not preformed. M5 OT- IP IADL's Start: 09/06/23 15:31 Freq: Status: Active Protocol: Document 09/06/23 15:31 [facility] (Rec: 09/06/23 15:45 [facility] [id number]) OT-Instrumental Activities of Daily Living Deficits IADL Deficits Identified Deficits Home Safety Awareness Awareness of Need for Assistance at Home Good Awareness Ability to Problem Solve Emergency Able to Problem Solve Situations Home Safety Comments Pt is a little groggy from pain medications and her will be able to provide supervision and assist as needed. Meal Preparation Meal Preparation Caregiver Provides Assist Vacation Guide Vacation Guide Caregiver Provides Assist M6 OT- IP Functional Cognition Start: 09/06/23 15:31 Freq: Status: Active Protocol: Document 09/06/23 15:31 [facility] (Rec: 09/06/23 15:45 [facility] [id number]) Cognitive Factors Limiting Selfcare Function Cognitive Ability Level of Alertness Alert,Drowsy Patient Orientation Name,Age,Birthday,Month,Date, Year,Day of Week,Place, Situation Attention Span Ability Capable of Focused Attention, Capable of Sustained Attention Ability to Follow Commands Able to Follow One Step Commands Cognitive Comments Cognitive Assessment Comments Pt a bit groggy and a needing increased time to follow and understand education of back precautions for ADL and mobility needs. OT- Vision and Hearing OT- Vision Assessment Visual Acuity Glasses For Reading Visual Attentiveness WFL Occular Pursuits WFL Vision Assessment Comments Pt's right eye tends to turn outward- pt states has done so since . Pt states mainly uses her left eye to see. M7 OT- IP Mobility and Balance Start: 09/06/23 15:31 Freq: Status: Active Protocol: Document 09/06/23 15:31 [facility] (Rec: 09/06/23 15:45 [facility] [id number]) OT-Transfer Assessment Sit to and From Stand Sit to and from Stand Contact Guard Assistance Comments Mobility Comments CGA to stand to the FWW and able to walk with close SBA in the room. OT- Balance Assessment Sitting Balance and Reactions Static Sitting Balance Ability Normal Dynamic Sitting Balance Ability Good Standing Balance and Reactions Static Standing Balance Ability Good Dynamic Standing Balance Ability Fair M8 OT- IP Objective Assessments Start: 09/06/23 15:31 Freq: Status: Active Protocol: Document 09/06/23 15:31 [facility] (Rec: 09/06/23 15:45 [facility] [id number]) OT Gross Range of Motion Upper Extremity Range of Motion Assessment Within Functional Limits OT Strength Upper Extremity Strength Assessment Within Functional Limits OT-Muscle Tone Assessment Muscle Tone WNL Yes M9 OT- IP Assessment and Plan Start: 09/06/23 15:31 Freq: Status: Active Protocol: Document 09/06/23 15:31 [facility] (Rec: 09/06/23 15:45 [facility] [id number]) OT Summary Assessment and Plan Potential Rehabilitation Potential Excellent Analytic Complexity at Evaluation Low Summary OT Impairments Pain,Balance,Functional Mobility,Dressing,Toileting, Bathing,Toilet Transfers, Shower Transfers,Activity Tolerance Progress Towards Goals Progressing Toward Goals Assessment Summary Pt low complexity and doing well and main barriers are pain and a little groggy from just having surgery today . Pt has a supportive to be able to assist her at home and to go home when medically stable. Goals Self-Feeding Goal Independent Grooming Goal Independent Dressing Goal Independent,Long Handled Shoe Horn,Personal Care Aide Toileting Goal Independent Bathing Goal Standby Assistance Toilet Transfer Goal Independent Shower Transfer Goal Standby Assistance Days to Meet Goals 7 Frequency of Treatment Frequency Of Treatment Once a Day Treatment Plan OT Treatment Plan ADL Training,Functional Mobility,Patient/Family Education,Discharge Planning Other Treatment Recommendations and Next Standing ADL's Treatment Focus Discharge Recommendations OT Discharge Recommendations Home with 12/09 Assist Available Home Equipment Needs BSC, sock aid? Transportation Needs at Discharge Private Vehicle
[2023-09-06] MEDS: LACTATED RINGERS 1,000 ML 125 ML IV (16:41)
[2023-09-06] MEDS: METFORMIN HCL 500 MG TABLET 1000 MG PO (16:41)
[2023-09-06] MEDS: DOCUSATE 100 MG CAPSULE PO (21:44)
[2023-09-06] MEDS: SENNOSIDES 8.6 MG TABLET 17.2 MG PO (21:44)
[2023-09-06] MEDS: ATORVASTATIN 20 MG TABLET PO (21:44)
[2023-09-07] MEDS: CEFAZOLIN 2 GM/100 ML PREMIX 100 ML IV (00:18)
[2023-09-07] MEDS: LACTATED RINGERS 1,000 ML 125 ML IV ×2 (00:41→06:44)
[2023-09-07 05:02] LABS: Hematocrit 22.4 % (36-46); Hemoglobin 7.6 g/dL (12.0-16.0)
[2023-09-07 06:00] VITALS: BP 109/48; PULSE 88; RESP 16; TEMP 36.4; O2SAT 97
[2023-09-07] MEDS: LEVOTHYROXINE 50 MCG TABLET PO (06:11)
--- NOTE | 2023-09-07 07:51 | PM.PNPO.1 ---
Subjective Subjective Interval history: Ya is a pleasant 73 year old female who is POD#1 s/p L3-4, L4-[address] Chiang. She is doing very well this morning, pain is moderate but well controlled oral Oxycodone alone. She has been able to get up and walk around her room already. She still has Miguel catheter in. Lives at home w/ , plans to d/c to home to him but was recommended to have a 2 night stay since she lives off [facility] any post-op complications occurred. No specific questions or concerns for me this morning. Denies fever, chills, chest pain, SOB, nausea, vomiting. Exam Vital Signs (past 8 hours): - 09/07/23 06:00 Temperature 97.6 F Pulse Rate 88 Respiratory Rate 16 Blood Pressure 109/48 L Pulse Oximetry 97 Oxygen Flow Rate 0 Oxygen Delivery Method Room Air Oxygen Flow Rate 0 Narrative Exam Narrative: Patient lying comfortably in bed during our interview today. No acute distress. AOx3. 5/5 strength with DF, PF, EHL bilaterally. Gross sensation intact throughout bilateral lower extremities. Calves soft and non-tender bilaterally. SCDs are on and functioning Brisk capillary refill, pulses intact. Post-surgical dressing clean, dry and intact over the lumbar spine. Objective Labs 09/07/23 04:42 Labs: Laboratory Results - last 24 hr 09/07/23 04:42 Hgb 7.6 L Hct 22.4 L PFSH Medical History (Updated 08/29/23 @ 13:50 by Rakel Hammond RN) Anesthesia complication History of COVID-19 (10/2022) Psoriatic arthritis Psoriasis Hypothyroid Pre-diabetes Fatty liver HLD (hyperlipidemia) HTN (hypertension) Spinal stenosis Surgical History (Updated 08/29/23 @ 13:24 by Rakel Hammond RN) Hx of tubal ligation History of History of gynecologic surgery History of hysterectomy Hx of hernia repair (~2001) Social History household members: spouse Smoking Status: Former smoker alcohol intake: current Assessment & Plan Post-op Postoperative Procedures: Procedures Operation Date: 09/06/23 08:45 Actual Procedure Side Surgeon p L3-4, L4-5 TRANSFORAMINAL LUMBAR INTERBODY FUSION WITH POSTERIOR INSTRUMENTATION - ROBOT Jody Chiang MD Postoperative day: 1 Postoperative plan narrative: 1) Plan to discharge to home tomorrow with . [place]. 2) Continue multimodal pain management. 3) Mechanical DVT prophylaxis. 4) Continue work with physical therapy. Maintain BLT restrictions. Would like to have Miguel catheter removed today if patient progresses well with PT. 5) Keep dressing intact, clean, dry until 2 week postop appointment. No soaking the incision site in pools or tubs. No topical ointments or creams to the incision site. 6) Follow up at [facility] in 2 weeks for a postop appointment and wound check. All patient's questions were answered, she demonstrates understanding and is in agreement with the plan. Call our office if any questions or concerns arise. Quality VTE Deep Vein Thrombosis/Pulmonary Embolism Present on Admission: No
[2023-09-07 08:00] VITALS: BP 118/48; PULSE 74; RESP 16; TEMP 37; O2SAT 98
[2023-09-07] MEDS: ACETAMINOPHEN 325 MG TABLET 650 MG PO ×2 (09:23→17:07)
[2023-09-07] MEDS: METFORMIN HCL 500 MG TABLET 1000 MG PO ×2 (09:25→17:07)
[2023-09-07] MEDS: DOCUSATE 100 MG CAPSULE PO ×2 (09:25→20:52)
--- NOTE | 2023-09-07 09:35 | CM.DANOTE ---
Patient is a 73 yo female who was admitted on 09/06/23 INPT Status for TLIF. Pt has MCR and [employer] for insurance and her PCP is Perlita Pacheco. EMR was reviewed. Per Ortho, pt tolerated procedure well and to work with PT/OT today for possible discharge home tomorrow Fri. PT/OT, recommend home with assist and HH and to attempt stairs and CG training with spouse today. SW met bedside with pt and spouse and explained role and they confirm they live on [address] at home and both very active and independent at baseline. Pt does not use DME for ambulation and drives and is independent with ADLs. Pt's spouse is securing a FWW for home use at discharge for additional stability. Pt has the option of staying on the first floor with no steps but her preference is upstairs in her typical room if possible. SW discussed HH recommendation and services and frequency and provided the [facility] brochure as they are the only HH agency that serves [facility]. Pt and spouse currently leaning [place] but they do not currently have a scheduled appointment yet. Pt wants to work with PT/OT today with spouse present and to try stairs before she makes decision on HH vs outpt PT. Plan: SW to follow closely for further PT/OT and stairs today with spouse present to confirm if pt wants outpt PT vs [facility] at discharge back to [place]. No HH referral made yet. BEENA Thibodeaux Discharge Planning/Care Management CM Discharge Assessment Start: 09/07/23 09:33 Freq: Status: Active Protocol: Document 09/07/23 09:33 BF (Rec: 09/07/23 09:35 BF [id number]) Discharge Planning Assessment Assigned Freelance Designer BEENA Clarke DPOA/Assigned Designee Name spouse Shad Contact Information [phone] Advance Directives? Yes Advance Directives on File No History Provided By Patient,Family Member,Medical Record Has Patient been admitted in last 30 No days? Prior Living Arrangements House Household Members spouse Type of transporation used prior to Drives own vehicle admit Independent with ADL's Yes Is patient alert and oriented? Yes Caregiver for Another No Community Services used prior to Physical Therapy admission: Patient/Family Preference Home with Home Health,OP PT Therapy Comment Pt determining between HH vs outpt PT Barriers to Discharge No Discharge Plan Home Community Services Physical Therapy Transportation Arrangement Spouse bedside and will transport Referrals Initiated Home Health Additional Comment Gave [facility] brochure to review, pt deciding between HH vs outpt Medicare Choice List Provided Yes Medicare choice list reviewed on patient,family electronic tablet with Whiteboard Updated in Patient Room with Yes name and ext. # of Freelance Designer Review Status In Process Please Provide Date Initial DC 09/07/23 Assessment Was Performed Next Review Type Continued Stay Review Pre-Anesthesia Assessment Start: 08/29/23 12:43 Freq: Status: Complete Protocol: Document 08/29/23 12:43 CAB (Rec: 08/29/23 13:49 CAB [id number]) Pre-Anesthesia Assessment Patient Information Reviewed Via Phone Assessment Assessment Completed With Patient Diagnostic Results EKG Comment Outside EKG scanned, labs done per pt, not available at time or review Primary Care Provider Perlita Pacheco Seen Specialist in Last 12 Months Yes Specialist Seen Orthopedist,Other Comment Rheumatology Primary Language Wolof Talend Developer Required No Height 154.94 cm Weight 73.028 kg Body Mass Index (BMI) 30.4 Hearing Ability Normal Visual Impairment No Limitations Visual Assist Magnifying Glass Dentition Type Teeth, Natural Present Barriers to Learning None Hx Anesthesia Reactions Yes: Told I stopped breathing during hernia repair Hx Family Anesthesia Reaction No Hx Malignant Hyperthermia No Hx Blood Transfusions No Anesthesia Review Requested No Assistant Women'S Basketball Coach No alcohol intake current alcohol intake frequency a few times a week Smoking Status Former smoker how long ago did patient quit smoking Quit 1971 Substance Use Type other Comment CBD edibles Pain Present Pain Reported Musculoskeletal Symptoms Abnormal Gait,Back Pain, Difficulty Walking History of Falling (Recent or History of No ) Patient is completely paralyzed or No completely immobile Mental Status Oriented to own ability Is patient on oxygen? No Does patient have LOCK/SOB Yes: with pain Hx Sleep Apnea No Currently Taking a Beta Martín No Hx Chest Pain No Hx SOB Yes: With pain Hx Syncope or Dizziness No Anti-Coagulant Therapy No Has a Import/Export Specialist No Cardiac Testing No Hx Pacemaker/ICD No Pacemaker Rep Required? No Cardiac Clearance Received No Diet Type At Home Regular Dysphagia No: Pescatarian Gastrointestinal Symptoms Constipation Urinary Catheter Present No Hx Urinary Self Catheterization No Diabetes No: Pre-diabetes Patient No Lactating No Hx Drug Resistant Organism No Presence of External or Internal Medical No Devices Received a COVID vaccine? Yes Marital Status Lives With spouse Current Living Arrangements House Number of Floors (Floors) Two Floors Support System Spouse Does the Patient Have Assistance After Yes Surgery Patient Discharge Plan Description Return Home Comment Pt advised 3 day length of stay per surgeon Feels Safe in Current Environment Yes Been Physically Hurt or Threatened By a No Person in Current Environment Do you have thoughts of harming yourself None or others? Are you currently considering suicide? No Do you have a plan to hurt yourself or No Plan others? Do You Have Any Spiritual Beliefs That No May Affect Your HC Choices? Do You Have Any Cultural Practices That No May Affect Your HC Choices? Who Can We Speak to About Patient's Care Family, friends Identifying Code for Release of Patient Declines to issue Information Health Care Proxy/Next of Kin Sahd () Health Care Proxy Emergency Contact Name Shad () Emergency Contact Advance Directives? Yes Advance Directives on File No Requested Patient Bring Advanced Yes Directives DOS Power of Executive Sous Chef Yes Power of Executive Sous Chef Name Shad () Power of Executive Sous Chef PAC Instructions Diabetes instructions,Durable medical equipment,Medications to take/avoid,Nasal antibiotic ,No ETOH/petroleum product on skin DOS,NPO,Post-op transportation,Pre-surgical wash,Sensory aids,Sturdy shoes /comfortable clothes,Do not bring valuables and remove jewelry
--- NOTE | 2023-09-07 10:19 | PC.NURSE ---
Addendum entered by Paris Olson R.N. 09/07/23 18:32: Miguel catheter taken out this am at 1000 am and patient has since voided. She is sitting up in the her chair and comfortable. Original Note: Assess- Patient is alert and oriented x4, she is getting up to the chair to sit now with landscape contractor's assistance. Dressing to back is cdi, Miguel just taken out of patient at 10:20 and she tolerated this well. Given tylenol for discomfort and ate a small amount at breakfast.
--- NOTE | 2023-09-07 11:34 | PT.IPTN ---
Current Diagnoses Spondylolisthesis, lumbar region (09/06/23) Spinal stenosis, lumbar region with neurogenic claudication (09/06/23) Surgery Performed Operation Date: 09/06/23 08:45 Actual Procedures p L3-4, L4-5 TRANSFORAMINAL LUMBAR INTERBODY FUSION WITH POSTERIOR INSTRUMENTATION - ROBOT - Jody Chiang MD Physical Therapy Treatment Note M2 PT-IP Current Condition Start: 09/06/23 16:25 Freq: NEEDED Status: Active Protocol: Document 09/06/23 14:20 AB (Rec: 09/06/23 16:40 AB [id number]) Physical Therapy Current Condition Current Condition Evaluation Date 09/06/23 Treatment Diagnosis s/p L3-4, L4-5 TLIF; difficulty in walking Onset Date 09/06/23 M3 PT-IP Subjective Start: 09/06/23 16:25 Freq: NEEDED Status: Active Protocol: Document 09/07/23 12:10 TS (Rec: 09/07/23 12:25 TS [id number]) Subjective Physical Therapy Visit Type Type Treatment Note Visit Start Time 11:34 Visit Stop Time 11:58 Number of MEDICAL DELIVERY DRIVER Visits 1 Physical Therapy Visit Comments Patient Comments Pt found resting in chair, reports pain is 5/10, is agreeable to PT. Therapy Pain Assessment Pain When Pain Assessed At Rest Pain Present Pain Present Pain Reported Location back Intensity 5 Scale Used Numeric (0 - 10) Pain Management Techniques Apply Cold,Distraction, Modification of Treatment,Re- positioning,Timing of Activity with Medications M4 PT-IP Mobility and Gait Start: 09/06/23 16:25 Freq: NEEDED Status: Active Protocol: Document 09/07/23 12:10 TS (Rec: 09/07/23 12:25 TS [id number]) PT-Bed Mobility Assessment Rolling Type of Rolling Log Rolling Level of Assist Standby Assistance Supine to Sit Supine to Sit Standby Assistance Sit to Supine Sit to Supine Standby Assistance Scooting Scooting to Edge of Bed Standby Assistance PT-Transfer Assessment Sit to and From Stand Sit to and from Stand Standby Assistance Equipment Transfer Assistive Device Gait Belt,Front Wheeled Walker Orthotic/Prosthetic Devices or Brace: No Comments Mobility Comments Pt recalled 3/3 spinal precautions prior to mobility. STS from chair with FWW SBA, pt requires cues for STS sequencing. She ambulated ~150 'SBA with FWW, she has good balance with step thru gait. She performed steps x6 with B handrails SBA, pt had no LOB or buckling. She ambulated back to room. Performed sit to supine/supine to sit SBA , she has good carryover of bed mobility sequencing. Pt was left back in chair, all needs met. Gait Assessment Gait Gait Assistance Required: Standby Assistance Distance (Feet) 150 Able to Maintain Weight Bearing Status Yes During Gait Assistive Devices Assistive Device Gait Belt,Front Wheeled Walker Orthotic/Prosthetic Devices or Brace: No Gait Deviations General Gait Pattern Decreased Stride Length, Decreased Feet Clearance, Flexed Trunk,Step-to Gait Factors Limiting Gait Function Factors Limiting Gait Function Decreased Activity Tolerance, Decreased Strength,Difficulty Following Directions,Limited Range of Motion,Pain,Poor Balance,Poor Safety Awareness Comments Gait Comments See mobility comments Stair Climbing Assessment Evaluation Level of Assist On Stairs Standby Assistance Devices Stair Climbing Assistive Devices Left Railing,Right Railing Technique/Endurance Stair Climbing Direction Ascend and Descend Stair Climbing Technique Step to Step Number of Steps Climbed 6 Comments Stair Climbing Comments See mobility comments PT-Balance Assessment Sitting Balance and Reactions Static Sitting Balance Ability Normal Dynamic Sitting Balance Ability Good Standing Balance and Reactions Static Standing Balance Ability Good Dynamic Standing Balance Ability Fair Device Used FWW M5 PT-IP Objective Assessments Start: 09/06/23 16:25 Freq: NEEDED Status: Active Protocol: Document 09/06/23 14:20 AB (Rec: 09/06/23 16:40 AB [id number]) Orientation Orientation/Cognition Level of Alertness Alert Orientation Name,Place,Situation Language Function Ability No Deficits Noted Safety Awareness Decreased Safety Awareness Memory Description Short Term Impaired Gross Range of Motion Lower Extremity ROM Assessment Within Functional Limits Strength Lower Extremity Strength Assessment Within Functional Limits Sensation Assessment Sensation Gross Sensation WNL Muscle Tone Muscle Tone WNL Yes M6 PT-IP Treatment Start: 09/06/23 16:25 Freq: NEEDED Status: Active Protocol: Document 09/07/23 12:10 TS (Rec: 09/07/23 12:25 TS [id number]) Physical Therapy Treatment Education Education Provided Precautions,Weight Bearing Status,Post-Op Packet,Safety M7 PT-IP Assessment and Plan Start: 09/06/23 16:25 Freq: NEEDED Status: Active Protocol: Document 09/07/23 12:10 TS (Rec: 09/07/23 12:25 TS [id number]) PT Summary Assessment and Plan Potential Rehabilitation Potential Good Summary Impairments Pain,ROM,Strength,Balance, Coordination,Sensation,Tone, Cognition,Bed Mobility, Transfers,Gait,Activity Tolerance Progress Towards Goals Progressing Toward Goals Assessment Summary Ya is making good progress with her mobility. She demonstrates good awareness of her precautions during mobility. She requires some cues for STS technique and bed mobility. She progressed her gait to ~150' SBA with FWW. She performed stairs x6 SBA with B handrails . Spouse to be in hospital at 14:30 for caregiver training. PT is recommending home with 12/09 assist and HHPT. Goals Bed Mobility Goal Independent Transfer Goal Independent,Front Wheeled Walker Gait Goal Independent,Front Wheel Walker Gait Distance 200 Other Goals up/down 13 steps B rails SBA Days to Meet Goals 5 Frequency of Treatment Frequency Of Treatment Twice a Day Other frequency or as tolerated Treatment Plan Physical Therapy Treatment Plan Bed Mobility Training,Transfer Training,Gait Training, Therapeutic Exercise,Balance Retraining,Post Op Education, Discharge Planning,Hot or Cold Pack,Neuromuscular Re-ed, Coordination Retraining,Manual Therapy Precautions Lumbar Precautions Log Roll,No Twisting,Limit Bending,Lifting Restriction of 10 lbs,Gait Belt above Incisional Area Recommendations To Nursing Amount of Assist Needed 1 Person Assist Discharge Recommendations PT Discharge Recommendations Home with 12/09 Assist Available,Home Health Transportation Needs at Discharge Private Vehicle
[2023-09-07 12:00] VITALS: BP 117/42; PULSE 89; RESP 19; TEMP 36.4; O2SAT 96
--- NOTE | 2023-09-07 14:45 | PT.IPTN ---
Current Diagnoses Spondylolisthesis, lumbar region (09/06/23) Spinal stenosis, lumbar region with neurogenic claudication (09/06/23) Surgery Performed Operation Date: 09/06/23 08:45 Actual Procedures p L3-4, L4-5 TRANSFORAMINAL LUMBAR INTERBODY FUSION WITH POSTERIOR INSTRUMENTATION - ROBOT - Jody Chiang MD Physical Therapy Treatment Note M2 PT-IP Current Condition Start: 09/06/23 16:25 Freq: NEEDED Status: Active Protocol: Document 09/06/23 14:20 AB (Rec: 09/06/23 16:40 AB [id number]) Physical Therapy Current Condition Current Condition Evaluation Date 09/06/23 Treatment Diagnosis s/p L3-4, L4-5 TLIF; difficulty in walking Onset Date 09/06/23 M3 PT-IP Subjective Start: 09/06/23 16:25 Freq: NEEDED Status: Active Protocol: Document 09/07/23 15:07 TS (Rec: 09/07/23 15:19 TS [id number]) Subjective Physical Therapy Visit Type Type Treatment Note Visit Start Time 14:45 Visit Stop Time 15:05 Notes Spouse present for caregiver training Number of COMPLIANCE AND CONTROL ANALYST Visits 2 Physical Therapy Visit Comments Patient Comments Pt found resting in chair, spouse in room, she is agreeable to PT. Therapy Pain Assessment Pain When Pain Assessed At Rest Pain Present Pain Present Pain Reported M4 PT-IP Mobility and Gait Start: 09/06/23 16:25 Freq: NEEDED Status: Active Protocol: Document 09/07/23 15:07 TS (Rec: 09/07/23 15:19 TS [id number]) PT-Bed Mobility Assessment Rolling Type of Rolling Log Rolling Level of Assist Standby Assistance Supine to Sit Supine to Sit Standby Assistance Sit to Supine Sit to Supine Standby Assistance Scooting Scooting to Edge of Bed Standby Assistance PT-Transfer Assessment Sit to and From Stand Sit to and from Stand Standby Assistance Equipment Transfer Assistive Device Gait Belt,Front Wheeled Walker Orthotic/Prosthetic Devices or Brace: No Comments Mobility Comments Spouse dons gait belt prior to standing. STS with FWW SBA. She ambulates ~250'SBA with step thru gait. Stairs x6 with B handrails assist and SBA. She ambulated back to room. Sit to supine into bed SBA with cues for logroll. Supine to sit SBA with BUE support. She was left back in chair, all needs met. Gait Assessment Gait Gait Assistance Required: Standby Assistance Distance (Feet) 250 Able to Maintain Weight Bearing Status Yes During Gait Assistive Devices Assistive Device Gait Belt,Front Wheeled Walker Gait Deviations General Gait Pattern Decreased Stride Length, Decreased Feet Clearance, Flexed Trunk Factors Limiting Gait Function Factors Limiting Gait Function Decreased Activity Tolerance, Decreased Strength,Limited Range of Motion,Pain,Poor Balance Comments Gait Comments See mobility comments Stair Climbing Assessment Evaluation Level of Assist On Stairs Standby Assistance Devices Stair Climbing Assistive Devices Left Railing,Right Railing Technique/Endurance Stair Climbing Direction Ascend and Descend Stair Climbing Technique Step to Step Number of Steps Climbed 6 Comments Stair Climbing Comments See mobility comments PT-Balance Assessment Sitting Balance and Reactions Static Sitting Balance Ability Normal Dynamic Sitting Balance Ability Good Standing Balance and Reactions Static Standing Balance Ability Good Dynamic Standing Balance Ability Fair Device Used FWW M5 PT-IP Objective Assessments Start: 09/06/23 16:25 Freq: NEEDED Status: Active Protocol: Document 09/06/23 14:20 AB (Rec: 09/06/23 16:40 AB [id number]) Orientation Orientation/Cognition Level of Alertness Alert Orientation Name,Place,Situation Language Function Ability No Deficits Noted Safety Awareness Decreased Safety Awareness Memory Description Short Term Impaired Gross Range of Motion Lower Extremity ROM Assessment Within Functional Limits Strength Lower Extremity Strength Assessment Within Functional Limits Sensation Assessment Sensation Gross Sensation WNL Muscle Tone Muscle Tone WNL Yes M6 PT-IP Treatment Start: 09/06/23 16:25 Freq: NEEDED Status: Active Protocol: Document 09/07/23 15:07 TS (Rec: 09/07/23 15:19 [id number]) Physical Therapy Treatment Education Education Provided Precautions,Weight Bearing Status,Post-Op Packet,Safety M7 PT-IP Assessment and Plan Start: 09/06/23 16:25 Freq: NEEDED Status: Active Protocol: Document 09/07/23 15:07 TS (Rec: 09/07/23 15:19 TS [id number]) PT Summary Assessment and Plan Potential Rehabilitation Potential Good Summary Impairments Pain,ROM,Strength,Balance, Coordination,Sensation,Tone, Cognition,Bed Mobility, Transfers,Gait,Activity Tolerance Progress Towards Goals Progressing Toward Goals Assessment Summary Ya continues to do well with her mobility. She demonstrates good safety awareness of her precautions with mobility. She progressed her ambulation to ~250'SBA with FWW. She has some slight SOB with gait, Spo2 98%. PT is recommending home with 24/7 assist. Goals Bed Mobility Goal Independent Transfer Goal Independent,Front Wheeled Walker Gait Goal Independent,Front Wheel Walker Gait Distance 200 Other Goals up/down 13 steps B rails SBA Days to Meet Goals 5 Frequency of Treatment Frequency Of Treatment Twice a Day Treatment Plan Physical Therapy Treatment Plan Bed Mobility Training,Transfer Training,Gait Training, Therapeutic Exercise,Balance Retraining,Post Op Education, Discharge Planning,Hot or Cold Pack,Neuromuscular Re-ed, Coordination Retraining,Manual Therapy Precautions Lumbar Precautions Log Roll,No Twisting,Limit Bending,Lifting Restriction of 10 lbs,Gait Belt above Incisional Area Recommendations To Nursing Amount of Assist Needed 1 Person Assist Discharge Recommendations PT Discharge Recommendations Home with 24/7 Assist Available Transportation Needs at Discharge Private Vehicle
--- NOTE | 2023-09-07 14:45 | PT.IPTN ---
Current Diagnoses Spondylolisthesis, lumbar region (09/06/23) Spinal stenosis, lumbar region with neurogenic claudication (09/06/23) Surgery Performed Operation Date: 09/06/23 08:45 Actual Procedures p L3-4, L4-5 TRANSFORAMINAL LUMBAR INTERBODY FUSION WITH POSTERIOR INSTRUMENTATION - ROBOT - Jody Chiang MD Physical Therapy Treatment Note M2 PT-IP Current Condition Start: 09/06/23 16:25 Freq: NEEDED Status: Active Protocol: Document 09/06/23 14:20 AB (Rec: 09/06/23 16:40 AB [id number]) Physical Therapy Current Condition Current Condition Evaluation Date 09/06/23 Treatment Diagnosis s/p L3-4, L4-5 TLIF; difficulty in walking Onset Date 09/06/23 M3 PT-IP Subjective Start: 09/06/23 16:25 Freq: NEEDED Status: Active Protocol: Document 09/07/23 15:07 TS (Rec: 09/07/23 15:19 TS [id number]) Subjective Physical Therapy Visit Type Type Treatment Note Visit Start Time 14:45 Visit Stop Time 15:05 Notes Spouse present for caregiver training Number of IMMIGRATION GUARD Visits 2 Physical Therapy Visit Comments Patient Comments Pt found resting in chair, spouse in room, she is agreeable to PT. Therapy Pain Assessment Pain When Pain Assessed At Rest Pain Present Pain Present Pain Reported M4 PT-IP Mobility and Gait Start: 09/06/23 16:25 Freq: NEEDED Status: Active Protocol: Document 09/07/23 15:07 TS (Rec: 09/07/23 15:19 TS [id number]) PT-Bed Mobility Assessment Rolling Type of Rolling Log Rolling Level of Assist Standby Assistance Supine to Sit Supine to Sit Standby Assistance Sit to Supine Sit to Supine Standby Assistance Scooting Scooting to Edge of Bed Standby Assistance PT-Transfer Assessment Sit to and From Stand Sit to and from Stand Standby Assistance Equipment Transfer Assistive Device Gait Belt,Front Wheeled Walker Orthotic/Prosthetic Devices or Brace: No Comments Mobility Comments Spouse dons gait belt prior to standing. STS with FWW SBA. She ambulates ~250'SBA with step thru gait. Stairs x6 with B handrails assist and SBA. She ambulated back to room. Sit to supine into bed SBA with cues for logroll. Supine to sit SBA with BUE support. She was left back in chair, all needs met. Gait Assessment Gait Gait Assistance Required: Standby Assistance Distance (Feet) 250 Able to Maintain Weight Bearing Status Yes During Gait Assistive Devices Assistive Device Gait Belt,Front Wheeled Walker Gait Deviations General Gait Pattern Decreased Stride Length, Decreased Feet Clearance, Flexed Trunk Factors Limiting Gait Function Factors Limiting Gait Function Decreased Activity Tolerance, Decreased Strength,Limited Range of Motion,Pain,Poor Balance Comments Gait Comments See mobility comments Stair Climbing Assessment Evaluation Level of Assist On Stairs Standby Assistance Devices Stair Climbing Assistive Devices Left Railing,Right Railing Technique/Endurance Stair Climbing Direction Ascend and Descend Stair Climbing Technique Step to Step Number of Steps Climbed 6 Comments Stair Climbing Comments See mobility comments PT-Balance Assessment Sitting Balance and Reactions Static Sitting Balance Ability Normal Dynamic Sitting Balance Ability Good Standing Balance and Reactions Static Standing Balance Ability Good Dynamic Standing Balance Ability Fair Device Used FWW M5 PT-IP Objective Assessments Start: 09/06/23 16:25 Freq: NEEDED Status: Active Protocol: Document 09/06/23 14:20 AB (Rec: 09/06/23 16:40 AB [id number]) Orientation Orientation/Cognition Level of Alertness Alert Orientation Name,Place,Situation Language Function Ability No Deficits Noted Safety Awareness Decreased Safety Awareness Memory Description Short Term Impaired Gross Range of Motion Lower Extremity ROM Assessment Within Functional Limits Strength Lower Extremity Strength Assessment Within Functional Limits Sensation Assessment Sensation Gross Sensation WNL Muscle Tone Muscle Tone WNL Yes M6 PT-IP Treatment Start: 09/06/23 16:25 Freq: NEEDED Status: Active Protocol: Document 09/07/23 15:07 TS (Rec: 09/07/23 15:19 [id number]) Physical Therapy Treatment Education Education Provided Precautions,Weight Bearing Status,Post-Op Packet,Safety M7 PT-IP Assessment and Plan Start: 09/06/23 16:25 Freq: NEEDED Status: Active Protocol: Document 09/07/23 15:07 TS (Rec: 09/07/23 15:19 TS [id number]) PT Summary Assessment and Plan Potential Rehabilitation Potential Good Summary Impairments Pain,ROM,Strength,Balance, Coordination,Sensation,Tone, Cognition,Bed Mobility, Transfers,Gait,Activity Tolerance Progress Towards Goals Progressing Toward Goals Assessment Summary Ya continues to do well with her mobility. She demonstrates good safety awareness of her precautions with mobility. She progressed her ambulation to ~250'SBA with FWW. She has some slight SOB with gait, Spo2 98%. PT is recommending home with 24/7 assist. Goals Bed Mobility Goal Independent Transfer Goal Independent,Front Wheeled Walker Gait Goal Independent,Front Wheel Walker Gait Distance 200 Other Goals up/down 13 steps B rails SBA Days to Meet Goals 5 Frequency of Treatment Frequency Of Treatment Twice a Day Treatment Plan Physical Therapy Treatment Plan Bed Mobility Training,Transfer Training,Gait Training, Therapeutic Exercise,Balance Retraining,Post Op Education, Discharge Planning,Hot or Cold Pack,Neuromuscular Re-ed, Coordination Retraining,Manual Therapy Precautions Lumbar Precautions Log Roll,No Twisting,Limit Bending,Lifting Restriction of 10 lbs,Gait Belt above Incisional Area Recommendations To Nursing Amount of Assist Needed 1 Person Assist Discharge Recommendations PT Discharge Recommendations Home with 24/7 Assist Available Transportation Needs at Discharge Private Vehicle
--- NOTE | 2023-09-07 15:26 | OT.IP.TRT ---
Current Diagnoses Spondylolisthesis, lumbar region (09/06/23) Spinal stenosis, lumbar region with neurogenic claudication (09/06/23) Surgery Performed Operation Date: 09/06/23 08:45 Actual Procedures p L3-4, L4-5 TRANSFORAMINAL LUMBAR INTERBODY FUSION WITH POSTERIOR INSTRUMENTATION - ROBOT - Jody Chiang MD Occupational Therapy Treatment Note M2 OT-IP Current Condition Start: 09/06/23 15:31 Freq: Status: Active Protocol: Document 09/06/23 15:31 [facility] (Rec: 09/06/23 15:45 [facility] [id number]) Occupational Therapy Current Condition Current Condition Evaluation Date 09/06/23 Treatment Diagnosis S/P L3-4, L4-5 TLIF Post Operative Precautions Lumbar Precautions Log Roll,No Twisting,Limit Bending,Lifting Restriction of 10 lbs,Gait Belt above Incisional Area M3 OT- IP Subjective and Pain Start: 09/06/23 15:31 Freq: Status: Active Protocol: Document 09/07/23 15:26 [facility] (Rec: 09/07/23 15:34 [facility] [id number]) OT- Subjective Occupational Therapy Visit Type Type Treatment Note Visit Start Time 15:02 Visit Stop Time 15:26 Occupational Therapy Visit Comments Patient Comments Pt wanting to use the bathroom and her in the room. Patient/Caregiver Goals To go home. OT Pain Assessment Pain When Pain Assessed At Rest Pain Present Pain Present Denied Pain M4 OT- IP ADL's Start: 09/06/23 15:31 Freq: Status: Active Protocol: Document 09/07/23 15:26 [facility] (Rec: 09/07/23 15:34 [facility] [id number]) OT ADL-Grooming General Evaluation Grooming Ability Independent OT ADL-Oral Care General Eval Oral Care Ability Independent OT ADL-Toileting General Evaluation Toileting Ability Independent Comments OT Toileting Comments Pt able to reach appropriately to wipe at this time and follow her back precautions. OT ADL-Bathing Comments OT Bathing Comments Pt states to shower at home. Educated to cover the dressing from getting wet. M5 OT- IP IADL's Start: 09/06/23 15:31 Freq: Status: Active Protocol: Document 09/06/23 15:31 [facility] (Rec: 09/06/23 15:45 [facility] [id number]) OT-Instrumental Activities of Daily Living Deficits IADL Deficits Identified Deficits Home Safety Awareness Awareness of Need for Assistance at Home Good Awareness Ability to Problem Solve Emergency Able to Problem Solve Situations Home Safety Comments Pt is a little groggy from pain medications and her will be able to provide supervision and assist as needed. Meal Preparation Meal Preparation Caregiver Provides Assist Screed Operator Screed Operator Caregiver Provides Assist M6 OT- IP Functional Cognition Start: 09/06/23 15:31 Freq: Status: Active Protocol: Document 09/07/23 15:26 [facility] (Rec: 09/07/23 15:34 [facility] [id number]) Cognitive Factors Limiting Selfcare Function Cognitive Ability Level of Alertness Alert Patient Orientation Name,Age,Birthday,Month,Date, Year,Day of Week,Place, Situation Attention Span Ability Capable of Focused Attention, Capable of Sustained Attention Ability to Follow Commands Able to Follow Multi-Step Commands Cognitive Comments Cognitive Assessment Comments Pt needing occasional safety cues and to slow down. M7 OT- IP Mobility and Balance Start: 09/06/23 15:31 Freq: Status: Active Protocol: Document 09/07/23 15:26 [facility] (Rec: 09/07/23 15:34 [facility] [id number]) OT-Transfer Assessment Sit to and From Stand Sit to and from Stand Standby Assistance Transfers Transfer Ability Standby Assistance Technique Transfer Destination Chair,Toilet Devices Transfer Assistive Devices Gait Belt,Front Wheeled Walker Comments Mobility Comments Pt SBA to distant SBA and just main vc to keep the FWW in front of her and not to pull on the Fww when coming to stand. OT- Balance Assessment Sitting Balance and Reactions Static Sitting Balance Ability Normal Dynamic Sitting Balance Ability Normal Standing Balance and Reactions Static Standing Balance Ability Good Dynamic Standing Balance Ability Good M8 OT- IP Objective Assessments Start: 09/06/23 15:31 Freq: Status: Active Protocol: Document 09/06/23 15:31 [facility] (Rec: 09/06/23 15:45 [facility] [id number]) OT Gross Range of Motion Upper Extremity Range of Motion Assessment Within Functional Limits OT Strength Upper Extremity Strength Assessment Within Functional Limits OT-Muscle Tone Assessment Muscle Tone WNL Yes M9 OT- IP Assessment and Plan Start: 09/06/23 15:31 Freq: Status: Active Protocol: Document 09/07/23 15:26 [facility] (Rec: 09/07/23 15:34 [facility] [id number]) OT Summary Assessment and Plan Potential Rehabilitation Potential Excellent Analytic Complexity at Evaluation Low Summary OT Impairments Balance,Functional Mobility, Dressing,Bathing,Shower Transfers Progress Towards Goals Progressing Toward Goals Assessment Summary Pt doing much better and moving well. Pt's educated of how to care for her for dressing,toileting, and bating needs. Pt encouraged to be mindful of her pets at home. Pt to go home when medically stable. Goals Days to Meet Goals 2 Frequency of Treatment Frequency Of Treatment Once a Day Treatment Plan OT Treatment Plan ADL Training,Functional Mobility,Patient/Family Education,Discharge Planning Discharge Recommendations OT Discharge Recommendations Home with Assistance Transportation Needs at Discharge Private Vehicle
[2023-09-07 19:00] VITALS: BP 117/55; PULSE 86; RESP 18; TEMP 37.3; O2SAT 97
[2023-09-07] MEDS: OXYCODONE IR 5 MG TABLET PO (20:51)
[2023-09-07] MEDS: SENNOSIDES 8.6 MG TABLET 17.2 MG PO (20:52)
[2023-09-07] MEDS: ATORVASTATIN 20 MG TABLET PO (20:52)
[2023-09-08 01:17] VITALS: BP 147/64; PULSE 92; RESP 18; TEMP 38.6; O2SAT 99
[2023-09-08 04:21] VITALS: TEMP 37.9
[2023-09-08] MEDS: ACETAMINOPHEN 325 MG TABLET 650 MG PO ×2 (04:21→10:44)
[2023-09-08] MEDS: LEVOTHYROXINE 50 MCG TABLET PO (05:12)
[2023-09-08 05:20] VITALS: TEMP 37.2
--- NOTE | 2023-09-08 08:30 | PT.IPTN ---
Current Diagnoses Spondylolisthesis, lumbar region (09/06/23) Spinal stenosis, lumbar region with neurogenic claudication (09/06/23) Surgery Performed Operation Date: 09/06/23 08:45 Actual Procedures p L3-4, L4-5 TRANSFORAMINAL LUMBAR INTERBODY FUSION WITH POSTERIOR INSTRUMENTATION - ROBOT - Jody Chiang MD Physical Therapy Treatment Note M2 PT-IP Current Condition Start: 09/06/23 16:25 Freq: NEEDED Status: Active Protocol: Document 09/06/23 14:20 AB (Rec: 09/06/23 16:40 AB [id number]) Physical Therapy Current Condition Current Condition Evaluation Date 09/06/23 Treatment Diagnosis s/p L3-4, L4-5 TLIF; difficulty in walking Onset Date 09/06/23 M3 PT-IP Subjective Start: 09/06/23 16:25 Freq: NEEDED Status: Active Protocol: Document 09/08/23 08:49 TS (Rec: 09/08/23 09:01 TS [id number]) Subjective Physical Therapy Visit Type Type Treatment Note Visit Start Time 08:30 Visit Stop Time 08:48 Number of LAYOUT MAN Visits 3 Physical Therapy Visit Comments Patient Comments Pt found resting in chair, reports she is feeling good this morning, has some stinging pain in back, she is agreeable to PT. Therapy Pain Assessment Pain When Pain Assessed At Rest Pain Present Pain Present Pain Reported M4 PT-IP Mobility and Gait Start: 09/06/23 16:25 Freq: NEEDED Status: Active Protocol: Document 09/08/23 08:49 TS (Rec: 09/08/23 09:01 TS [id number]) PT-Transfer Assessment Sit to and From Stand Sit to and from Stand Standby Assistance Equipment Transfer Assistive Device Gait Belt,Front Wheeled Walker Orthotic/Prosthetic Devices or Brace: No Comments Mobility Comments STS with FWW SBA, pt has good standing balance. She ambulated ~250'SBA with FWW and a step thru gait. She performed stairs x6 with B handrails and SBA. pt was left back in room, all needs met. Gait Assessment Gait Gait Assistance Required: Standby Assistance Distance (Feet) 250 Able to Maintain Weight Bearing Status Yes During Gait Assistive Devices Assistive Device Gait Belt,Front Wheeled Walker Orthotic/Prosthetic Devices or Brace: No Gait Deviations General Gait Pattern Decreased Stride Length, Decreased Feet Clearance, Flexed Trunk Factors Limiting Gait Function Factors Limiting Gait Function Decreased Activity Tolerance, Decreased Strength,Limited Range of Motion,Pain Comments Gait Comments See mobility comments Stair Climbing Assessment Evaluation Level of Assist On Stairs Standby Assistance Devices Stair Climbing Assistive Devices Left Railing,Right Railing Technique/Endurance Stair Climbing Direction Ascend and Descend Stair Climbing Technique Step to Step Number of Steps Climbed 6 Comments Stair Climbing Comments See mobility comments PT-Balance Assessment Sitting Balance and Reactions Static Sitting Balance Ability Normal Dynamic Sitting Balance Ability Good Standing Balance and Reactions Static Standing Balance Ability Good Dynamic Standing Balance Ability Good Device Used FWW M5 PT-IP Objective Assessments Start: 09/06/23 16:25 Freq: NEEDED Status: Active Protocol: Document 09/06/23 14:20 AB (Rec: 09/06/23 16:40 AB [id number]) Orientation Orientation/Cognition Level of Alertness Alert Orientation Name,Place,Situation Language Function Ability No Deficits Noted Safety Awareness Decreased Safety Awareness Memory Description Short Term Impaired Gross Range of Motion Lower Extremity ROM Assessment Within Functional Limits Strength Lower Extremity Strength Assessment Within Functional Limits Sensation Assessment Sensation Gross Sensation WNL Muscle Tone Muscle Tone WNL Yes M6 PT-IP Treatment Start: 09/06/23 16:25 Freq: NEEDED Status: Active Protocol: Document 09/08/23 08:49 TS (Rec: 09/08/23 09:01 [id number]) Physical Therapy Treatment Education Education Provided Precautions,Weight Bearing Status,Post-Op Packet,Safety M7 PT-IP Assessment and Plan Start: 09/06/23 16:25 Freq: NEEDED Status: Active Protocol: Document 09/08/23 08:49 TS (Rec: 09/08/23 09:01 [id number]) PT Summary Assessment and Plan Potential Rehabilitation Potential Good Summary Impairments Pain,ROM,Strength,Balance, Coordination,Sensation,Tone, Cognition,Bed Mobility, Transfers,Gait,Activity Tolerance Progress Towards Goals Progressing Toward Goals Assessment Summary Ya continues to do well with her mobility. She is SBA for STS with use of FWW. She continues to ambulate with good balance and SBA. She demonstrates good awareness of her spinal precautions with mobility. PT is recommending home with assist. Goals Bed Mobility Goal Independent Transfer Goal Independent,Front Wheeled Walker Gait Goal Independent,Front Wheel Walker Gait Distance 200 Other Goals up/down 13 steps B rails SBA Days to Meet Goals 5 Frequency of Treatment Frequency Of Treatment Twice a Day Treatment Plan Physical Therapy Treatment Plan Bed Mobility Training,Transfer Training,Gait Training, Therapeutic Exercise,Balance Retraining,Post Op Education, Discharge Planning,Hot or Cold Pack,Neuromuscular Re-ed, Coordination Retraining,Manual Therapy Precautions Lumbar Precautions Log Roll,No Twisting,Limit Bending,Lifting Restriction of 10 lbs,Gait Belt above Incisional Area Recommendations To Nursing Amount of Assist Needed Standby Assistance Discharge Recommendations PT Discharge Recommendations Home with Assistance Transportation Needs at Discharge Private Vehicle
[2023-09-08 08:36] VITALS: BP 110/52; PULSE 82; RESP 17; TEMP 36.5; O2SAT 100
[2023-09-08] MEDS: METFORMIN HCL 500 MG TABLET 1000 MG PO (08:36)
[2023-09-08] MEDS: DOCUSATE 100 MG CAPSULE PO (08:37)
--- NOTE | 2023-09-08 09:03 | P.PN_ITS ---
Subjective Subjective Date Patient Seen: 09/08/23 Time Patient Seen: 09:03 Exam Vital Signs (past 8 hours): - 09/08/23 01:17 09/08/23 04:21 09/08/23 05:20 Temperature 101.5 F H 100.3 F H 99.0 F Pulse Rate 92 H Respiratory Rate 18 Blood Pressure 147/64 H Pulse Oximetry 99 Oxygen Flow Rate 0 09/08/23 08:36 Temperature 97.7 F Pulse Rate 82 Respiratory Rate 17 Blood Pressure 110/52 L Pulse Oximetry 100 Oxygen Flow Rate Oxygen Delivery Method Room Air Oxygen Flow Rate 0 Objective Labs 09/07/23 04:42 [facility] Medical History (Updated 08/29/23 @ 13:50 by Rakel Hammond RN) Anesthesia complication History of COVID-19 (10/2022) Psoriatic arthritis Psoriasis Hypothyroid Pre-diabetes Fatty liver HLD (hyperlipidemia) HTN (hypertension) Spinal stenosis Surgical History (Updated 08/29/23 @ 13:24 by Rakel Hammond RN) Hx of tubal ligation History of History of gynecologic surgery History of hysterectomy Hx of hernia repair (~2001) Social History household members: spouse Smoking Status: Former smoker alcohol intake: current Assessment & Plan Post-op Postoperative Procedures: Procedures Operation Date: 09/06/23 08:45 Actual Procedure Side Surgeon p L3-4, L4-5 TRANSFORAMINAL LUMBAR INTERBODY FUSION WITH POSTERIOR INSTRUMENTATION - ROBOT Jody Chiang MD Quality VTE Deep Vein Thrombosis/Pulmonary Embolism Present on Admission: No
--- NOTE | 2023-09-08 09:38 | CM.SWNOTE ---
Addendum entered by BEENA Peck 09/08/23 10:12: Per Rene , patient is accepted by agency with start of care likely on Monday, 09/10. RN notified. STEPHAN Woodward Original Note: DCP Continued: Reviewed EMR and team rounds for pt?s medical status. Patient has a discharge order in. Per RN, patient is eager to discharge when stable. DCP entered room, introduced self and role. Discussed with patient [facility] information given by DCP yesterday, patient agreeable to referral today. DCP sent [facility] referral, F2F completed. Plan: Patient to discharge home with family, follow up with [facility] pending acceptance of services. CM Team will continue to follow for coordination of discharge plans. STEPHAN Woodward
[2023-09-08 09:57] LABS: Hematocrit 23.4 % (36-46); Hemoglobin 8.1 g/dL (12.0-16.0)
--- NOTE | 2023-09-08 10:35 | PM.DS.1 ---
History of Present Illness History of Present Illness Date Patient Seen: 09/08/23 Time Patient Seen: 08:30 Chief complaint: TLIF Narrative: Operative Date/Time/Diagnoses Date of procedure: 09/06/23 Time of procedure: 08:40 Pre-op diagnosis: 1. L3-4, L4-5 spinal stenosis with neurogenic claudication 2. L3-4, L4-5 spondylolisthesis Post-op diagnosis: same Procedure & Clinicians Procedure: 1. L3-4, L4-5 Postero-lateral and posterior interbody fusion 2. L3-4, L4-5 interbody cage placement. 3. L3-4, L4-5 decompressive laminectomy with bilateral facetecomies 4. L3-4, L4-5 Posterior segmental instrumentation 5. [place] of bone marrow from iliac crest 6. Utilization of microsurgical technique and operating microscope Same procedure as scheduled: Yes Indications: Patient has been having chronic back pain and worsening lumbar radiculopathy and symptoms of neurogenic claudication. Patient has MRI showing L3-4 L4-5 anterolisthesis with severe spinal stenosis correlating with her symptoms. Patient failed multiple conservative management with worsening pain weakness and numbness in her lower extremity. Patient has been having difficulty performing activity of daily living. After discussing risks benefits of treatment options, patient elected proceed with surgery. Surgeon: Jody Chiang Slitter Creaser Slotter Operator: Mary Zaragoza Click Yes if Unassisted: No Anesthesia Type: General Discharge Providers Provider Date of admission: 09/06/23 07:28 Discharge Date: 09/08/23 Primary care physician: Perlita Pacheco MD Consults: 09/06/23 13:16 Consult to Occupational Therapy Evaluate & Treat Comment: Physician Instructions: Evaluate and treat Consult to Physical Therapy Evaluate & Treat Comment: Physician Instructions: Evaluate and Treat 09/08/23 09:33 Consult to Home Health Routine Comment: TLIF, Spinal stenosis, CHF Reason For Exam: RN, PT, OT, HH Aide Discharge provider: Murali Ramirez PA-C Summary Hospital Course Discharge Diagnosis: Status post TLIF Hospital Course: Multimodal pain control. PT. Status at Discharge Cognitive/behavioral status at discharge: oriented Functional status at discharge: uses cane/walker Time Spent with Patient Time spent: Less than 30 minutes Exam Vital Signs (past 8 hours): - 09/08/23 04:21 09/08/23 05:20 07/19/24 08:36 Temperature 100.3 F H 99.0 F 97.7 F Pulse Rate 82 Respiratory Rate 17 Blood Pressure 110/52 L Pulse Oximetry 100 Oxygen Delivery Method Room Air Oxygen Flow Rate 0 Objective Labs 09/08/23 09:40 Labs: Laboratory Results - last 24 hr 09/08/23 09:40 Hgb 8.1 L Hct 23.4 L PFSH Medical History (Updated 08/29/23 @ 13:50 by Rakel Hammond RN) Anesthesia complication History of COVID-19 (10/2022) Psoriatic arthritis Psoriasis Hypothyroid Pre-diabetes Fatty liver HLD (hyperlipidemia) HTN (hypertension) Spinal stenosis Surgical History (Updated 08/29/23 @ 13:24 by Rakel Hammond RN) Hx of tubal ligation History of History of gynecologic surgery History of hysterectomy Hx of hernia repair (~2001) Social History household members: spouse Smoking Status: Former smoker alcohol intake: current Discharge Assessment & Plan Assessment and Plan Assessment: Status post TLIF Plan of Treatment: Discharge home Multimodal pain control with baseline acetaminophen 500 mg every 4 hours as neded for pain. Oxycodone 5mg every 4 hours as needed for breakthrough pain not controlled with acetaminophen. No deep bending or twisting at the waist. No lifting more than 10 pounds. Follow up in 2 week in clinic for wound check. Discharge Plan Discharge Plan Patient Disposition: Home Discharge orders & Medications Prescriptions: New acetaminophen 325 mg Tablet 650 mg PO Q6H PRN (Reason: Fever/Mild Pain (1-3)) Qty: 120 1RF docusate sodium 100 mg Capsule 100 mg PO BID Qty: 30 1RF oxycodone 5 mg Tablet 5 mg PO Q4-6H PRN (Reason: Pain, Moderate (4-6)) Qty: 20 0RF Continued levothyroxine 50 MCG tablet 0.05 mg PO QAM Qty: 90 3RF metformin 1,000 MG tablet 1,000 mg PO BIDCC Qty: 180 3RF Patient Comments: pt states forfatty liver lisinopril 40 mg Tablet 40 mg PO DAILY rosuvastatin 10 mg Tablet 10 mg PO BEDTIME Rinvoq 15 mg Tablet Extended Release 24 Hr 15 mg PO DAILY Follow up/Referrals: Perlita Pacheco MD [Primary Care Provider] - Jody Chiang MD [Physician] - 09/21/23 1:30 pm (Follow up w/ Mary Zaragoza PA-C, at [facility] in [place].) Diet/Activity/Treatments Diet: Diet as Tolerated Activity: No deep bending or twisting at the waist. No lifting more than 10 pounds. Skin/Wound/Dressing Care Report to your healthcare provider any signs of infection, such as:: chills, fever, night sweats, unusual drainage and unusual redness Dressing: May shower. Keep dressing as dry as possible. If dressing becomes wet or dirty, may remove and replace with clean, dry gauze. No bathing or otherwise soaking incisions. Do not apply any creams, lotions, or ointments to incisions. Visit Report/Discharge Packet Instructions: How to Prevent Falls, DI for Prescription Opioid Use, DI for Transforaminal Lumbar Interbody Fusion Stand Alone Forms: Patient Portal/API, Stroke Signs & Symptoms Discharge Data Primary Care Provider: Perlita Pacheco VTE Deep Vein Thrombosis/Pulmonary Embolism Present on Admission: No
== END 2023-09-08 11:00 | disposition home health service (06) | DRG 455 ==
PROVIDERS: Physician Assistant; Admitting Provider Orthopaedic Surgery Orthopaedic Surgery of the Spine; PCP Family Medicine; Referring Provider Family Medicine; Visit Provider Orthopaedic Surgery Orthopaedic Surgery of the Spine
PROC: 0SG10AJ Fusion of 2 or more Lumbar Vertebral Joints with Interbody Fusion Device, Posterior Approach, Anterior Column, Open Approach (ICD-10-PCS; principal; 2023-09-06 08:45)
DX: M48.062 Spinal stenosis, lumbar region with neurogenic claudication (principal); M43.16 Spondylolisthesis, lumbar region; E78.5 Hyperlipidemia, unspecified; I10 Essential (primary) hypertension; E03.9 Hypothyroidism, unspecified; L40.50 Arthropathic psoriasis, unspecified; E11.9 Type 2 diabetes mellitus without complications; Z79.84 Long term (current) use of oral hypoglycemic drugs; Z87.891 Personal history of nicotine dependence
CPT/HCPCS: 36415; 72100; 76000; 85014; 85018; 97116; 97162; 97165; 97530; 97535; C1713; C1831; C9290; J0171; J0690; J1100; J1170; J2405; J2704

== ENCOUNTER → 2023-12-19 12:38 | Outpatient (CLI) | payer MEDICARE, SELFPAY ==
[2023-09-06 13:39] VITALS: BMI 30.2
--- NOTE | 2023-12-19 | DI.ECHO.S_ITS ---
[facility] : : [address] : : [place] : : [id number] : : Phone: [phone] Echocardiogram Report + + :Name: SAMIRA CAR Study Date: 12/19/2023 Height: 60 in : :[facility] ReadingLocation: Weight: 160 lb : : Gender: Female BSA: 1.7 m2 : :: 1950 Age: 73 yrs BP: 120/75 mmHg: :Reason For Study: HEART MURMUR : :Ordering Physician: LA, : :ASHLEY Claros Performed By: Johana Sepulveda : :Referring: ASHLEY TOVAR : + + Interpretation Summary 1) Normal left ventricular thickness, size, wall motion, and systolic function (EF 60-65%). 2) Normal right ventricular size and function. 3) There is mild aortic stenosis (valve area 1.9cm2, mean gradient 12mmHg, severity ratio 0.56). 4) Compared to the Echo done 08/14/2022, mild aortic stenosis is present on this study. Procedure: A two-dimensional transthoracic echocardiogram with color flow and Doppler was performed. The study quality was technically adequate. Comparison is made with the echocardiogram of 08/14/2022. The patient was in sinus rhythm with heart rates between 73-81 bpm during the exam. Left Ventricle: There is normal left ventricular wall thickness. The left ventricle is normal in size. The ejection fraction is estimated to be 60-65%. Left ventricular systolic function appears normal without focal wall motion abnormalities. Diastolic parameters suggest a relaxation abnormality of the left ventricle, consistent with probable normal filling pressures. Right Ventricle: The right ventricle is normal in size and function. Atria: The left atrial size is normal. Right atrial size is normal. There is no Doppler evidence for an interatrial shunt. Mitral Valve: The mitral valve is normal in structure and function. There is trace mitral regurgitation. Aortic Valve: The aortic valve is trileaflet. The aortic valve is mildly calcified. The peak aortic velocity is 2.2 m/sec. The aortic valve mean gradient is 12 mmHg. The calculated aortic valve area is 1.9 cm2. There is mild aortic stenosis. No aortic regurgitation is present. Tricuspid Valve: The tricuspid valve is normal in structure and function. There is mild tricuspid regurgitation. Pulmonary artery pressures cannot be estimated because of the lack of a measurable TR jet velocity. Pulmonic Valve: The pulmonic valve is not well seen, but is grossly normal. There is no pulmonic valvular regurgitation. Great Vessels: The aortic root is normal size. The dimensions of the ascending aorta are normal. The IVC is of normal diameter and collapses greater than 50% with a sniff. This suggests a low right atrial pressure of 3 mm Hg. Pericardium/ Pleura There is no pericardial effusion. There is no pleural effusion. MMode/2D Measurements & Calculations LVIDd: 3.5 cm LVOT diam: 2.0 cm LVIDs: 2.4 cm Ao root diam: 2.9 cm FS: 32.8 % asc Aorta Diam: 3.4 cm IVSd: 0.79 cm Ao Arch Diam (Prox Trans): 2.9 cm LVPWd: 0.89 cm LV contreras. diameter/BSA (cm/m^2): 2.1 LV sys. diameter/BSA (cm/m^2): 1.4 LA A2 area: 15.4 cm2 RA long axis: 4.4 cm LA A4 area: 15.2 cm2 RA area: 13.3 cm2 LA length (vol): 4.9 cm RA vol: 34.0 ml LA vol: 41.0 ml RA : 20.1 ml/m2 LA vol index: 24.2 ml/m2 IVC diam: 1.0 cm RVD1 (basal): 3.8 cm TAPSE: 2.0 cm Doppler Measurements & Calculations Ao V2 max: 216.9 cm/sec LVOT Max Jose Luis: 130.1 cm/sec Ao V2 mean: 153.3 cm/sec LV V1 max P.8 mmHg Ao max P.2 mmHg LV V1 VTI: 23.8 cm Ao mean P.5 mmHg DODIE(I,D): 1.8 cm2 Ao V2 VTI: 42.5 cm DODIE(V,D): 1.9 cm2 sev ratio: 0.56 DODIE indexed to BSA (cm^2/m^2): 1.0 MV E max jose luis: 74.9 cm/sec PA V2 max: 118.4 cm/sec MV A max jose luis: 94.2 cm/sec PA V2 mean: 83.8 cm/sec MV E/A: 0.79 PA mean P.1 mmHg Med Peak E' Jose Luis: 5.0 cm/sec PA pr(Accel): 48.2 mmHg E/E' med: 14.8 Lat Peak E' Jose Luis: 9.0 cm/sec E/E' lat: 8.4 E/e' average: 11.6 MV dec time: 0.20 sec MVA(VTI): 3.9 cm2 MV V2 mean: 58.5 cm/sec SV(LVOT): 74.7 ml MV mean P.5 mmHg MV V2 VTI: 19.2 cm Reading Physician:05:18 PM
== END ==
PROVIDERS: PCP Family Medicine; Referring Provider Family Medicine; Visit Provider Family Medicine
DX: I08.2 Rheumatic disorders of both aortic and tricuspid valves (principal); R01.1 Cardiac murmur, unspecified
CPT/HCPCS: 93306

== ENCOUNTER → 2024-08-27 14:16 | Outpatient (CLI) | payer MEDICARE, SELFPAY ==
[2023-09-06 13:39] VITALS: BMI 30.2
--- NOTE | 2024-08-27 14:17 | DI.MG.S_ITS ---
MM screening mammo BI: 08/27/2024. BI-RADS: 2 CLINICAL: 74-year old female for bilateral screening mammogram. Tyrer-Cuzick lifetime risk of 7.9%. Current reported family history of breast cancer: mother. PRIOR EXAMS 06/27/2023, 12/09/2022, 04/25/2022, 03/31/2022, 03/12/2021. MAMMOGRAPHY TECHNIQUE: 2D and 3D (tomosynthesis) digital mammographic views obtained, with additional images as needed for full coverage. Current study was also evaluated with a Computer Aided Detection (CAD) system. DENSITY C. The breasts are heterogeneously dense, which may obscure small masses. MAMMOGRAPHY FINDINGS Bilateral: Benign-appearing calcifications noted. There are no suspicious masses, calcifications, or other findings in the breast. No significant change from comparison. IMPRESSION: * No evidence of malignancy with benign findings. RECOMMENDATIONS Bilateral * Annual screening mammography. OVERALL ASSESSMENT CATEGORY BI-RADS-2: Benign. The [employer] recommends annual screening mammography beginning at age 40 for women with average risk of breast cancer. PRELIMINARILY ELECTRONICALLY SIGNED: Emilia Dumont M.D. on 08/27/2024 at 11:36:04 PM PT ELECTRONICALLY SIGNED: Emilia Dumont M.D. on 08/30/2024 at 05:07:16 PM PT Interpreting Station ID: [id number]
== END ==
PROVIDERS: PCP Family Medicine; Referring Provider Family Medicine; Visit Provider Family Medicine
DX: Z12.31 Encounter for screening mammogram for malignant neoplasm of breast (principal); Z80.3 Family history of malignant neoplasm of breast; R92.333 Mammographic heterogeneous density, bilateral breasts
CPT/HCPCS: 77063; 77067